=== PATIENT | female | born 1990 | race Two or more races ===

== ENCOUNTER → 2016-12-24 | Outpatient (CLI) | payer OTHER ==
--- NOTE | 2016-12-24 16:32 | REP ---
LEFT FOOT, FOUR VIEWS: HISTORY: Pain. There is no acute fracture or dislocation. The joint spaces are normal in appearance. IMPRESSION: There is no acute fracture or dislocation. Signed by Aquilino Kaur MD 12/24/2016 04:37 P
== END ==
LOC: M LRY 14:55
PROVIDERS: ATTEND Nurse Practitioner Family
DX: M79.672 Pain in left foot (principal)
CPT/HCPCS: 73630; G0463

== ENCOUNTER 2018-10-06 18:14 | Inpatient (IN) | payer OTHER ==
[~2018-10-06] VITALS: Ht 165.1 cm; Wt 106.9 kg
[~2018-10-06 18:14] MED LIST: PENI250T57 PO
[2018-10-06] MEDS ORDERED: ACET1TAB55 PO (18:20)
[2018-10-06] MEDS ORDERED: NS 1,000 ML IV ONE (20:15)
[2018-10-06] MEDS: HYDROMORPHONE HCL 0.5 MG/ 0.5 ML SYRINGE (J1170 PER 1) IV PRN ×2 (20:23→20:48)
[2018-10-06 20:27] LABS: BASO % 0.2 % (0.0-1.0); EOS % 0.1 % (0.0-3.0); HEMATOCRIT 44.5 % (36.0-47.0); HEMOGLOBIN 15.5 g/dl (12.0-15.5); LYMPH % 12.1 % (24.0-44.0); MEAN CORPUSCULAR HGB CONC 34.8 g/dl (32.0-36.5); MEAN CORPUSCULAR VOLUME 91.9 fl (80.0-96.0); MONO # 0.9 10^3/uL (0.0-0.8); MONO % 5.5 % (0.0-5.0); NEUTROPHILS # 13.7 10^3/uL (1.8-7.7); NEUTROPHILS % 81.7 % (36.0-66.0); PLATELET COUNT, AUTOMATED 272 10^3/uL (150-450); RED BLOOD COUNT 4.84 10^6/uL (4.00-5.40); WHITE BLOOD COUNT 16.8 10^3/uL (4.0-10.0)
[2018-10-06] MEDS ORDERED: ONDANSETRON 4MG/2ML VIAL (J2405) IV ONE (20:30)
[2018-10-06 20:43] LABS: ALBUMIN 3.9 GM/DL (3.2-5.2); ALT/SGPT 28 U/L (12-78); BILIRUBIN,DIRECT 0.3 MG/DL (0.0-0.2); BILIRUBIN,TOTAL 0.7 MG/DL (0.2-1.0); BLOOD UREA NITROGEN 10 MG/DL (7-18); CALCIUM LEVEL 9.3 MG/DL (8.5-10.1); CARBON DIOXIDE LEVEL 26 MEQ/L (21-32); CHLORIDE LEVEL 106 MEQ/L (98-107); CREATININE FOR GFR 1.02 MG/DL (0.55-1.30); GLOMERULAR FILTRATION RATE > 60.0 (>60); GLUCOSE, FASTING 99 MG/DL (70-100); HCG, SERUM QUANTITATIVE < 1.0 MIU/ML; LIPASE 88 U/L (73-393); POTASSIUM SERUM 3.9 MEQ/L (3.5-5.1); SODIUM LEVEL 138 MEQ/L (136-145); TOTAL PROTEIN 8.2 GM/DL (6.4-8.2)
[2018-10-06] MEDS ORDERED: ISOVUE-370 76% 100ML VIAL (Q9967) As Ordered ONE (20:48)
[2018-10-06] MEDS ORDERED: PROMETHAZINE INJ 25 MG/ML VIAL (J2550) IV ONE (21:15)
--- NOTE | 2018-10-06 21:37 | REPVR ---
EXAM: CT Abdomen and Pelvis With Contrast EXAM DATE/TIME: 10/06/2018 9:13 PM CLINICAL HISTORY: 28 years old, female; Abdominal pain; Additional info: Abd pain, luq TECHNIQUE: Imaging protocol: Axial computed tomography images of the abdomen and pelvis with intravenous contrast. Coronal and sagittal reformatted images were created and reviewed. Radiation optimization: All CT scans at this facility use at least one of these dose optimization techniques: automated exposure control; mA and/or kV adjustment per patient size (includes targeted exams where dose is matched to clinical indication); or iterative reconstruction. Contrast material: ISO 370; Contrast volume: 100 ml; Contrast route: IV; COMPARISON: US PELVIC NON-OB COMPLETE 12/06/2015 5:24 PM FINDINGS: Liver: Mild hepatic steatosis. Gallbladder and bile ducts: No radiodense gallstones. No biliary ductal dilatation. Pancreas: Unremarkable. Spleen: Unremarkable. Adrenals: Unremarkable. Kidneys and ureters: Nonobstructing left renal calculi. No hydronephrosis. Stomach and bowel: No bowel wall thickening. No obstruction. No pneumatosis. Appendix: Findings suggestive of prior appendectomy. Intraperitoneal space: No free fluid. No organized fluid collection. No free air. Vasculature: Unremarkable. No aneurysm. Lymph nodes: No pathologically enlarged lymph nodes. Bladder: Unremarkable. Reproductive: Intrauterine device in adequate position. Bones/joints: No acute osseous abnormality. Soft tissues: Small, fat-containing umbilical hernia. IMPRESSION: 1. No CT evidence of acute intra-abdominal or pelvic pathology. 2. Additional findings, as above. Electronically signed by: Yannick Felipe On 10/06/2018 21:37:20 PM
[2018-10-06] MEDS ORDERED: GI COCKTAIL 50ML BTL(HYOSCYAMINE/MAALOX/LIDOCAINE VISCOUS)(1:3:1) PO ONE (21:45)
[2018-10-06] MEDS ORDERED: NS 500 ML IV ONE (23:30)
[2018-10-06] MEDS ORDERED: KETOROLAC 30 MG/ML VIAL (J1885) As Ordered ONE (23:32)
[2018-10-06] MEDS ORDERED: KETOROLAC 30 MG/ML VIAL (J1885) IV ONE (23:45)
[2018-10-07] VITALS (12 sets, daily range): BP systolic 90–125; BP diastolic 46–67
[2018-10-07] MEDS ORDERED: PANTOPRAZOLE 40MG INJ (PROTONIX) (C9113) IV ONE (00:15)
[2018-10-07] MEDS ORDERED: HYDROMORPHONE HCL 0.5 MG/ 0.5 ML SYRINGE (J1170 PER 1) IV PRN (00:15)
[2018-10-07] MEDS ORDERED: ACET-897 PO (00:19)
--- NOTE | 2018-10-07 00:44 | HPEPDOC ---
General Date of Admission 10/07/18 Date of Service: Oct 07, 2018 Primary Care Physician: A Attending Physician: SIRIA CABRERA MD Chief Complaint The patient is a 28-year-old female admitted with a reason for visit of Nausea/Vomiting/Fever. Source: Patient Exam Limitations: No limitations Timing/Duration: Day(s) Severity: Moderate Associated Symptoms: Nausea, Vomiting History of Present Illness 28 years old female with past medical history ofsignificant disease except appendectomy and LEEP procedure presented with chief complaints of persistent nausea and vomiting since last 3 days and unable to keep anything down. Patient also complaining of abdominal pain which is sharp, epigastric in nature, nonradiating, persistent not relieving with any medication or position and exacerbated by increase it by increasing oral intake Home Medications Scheduled PRN Acetaminophen (Tylenol Extra Strength) 500 Mg Tablet, 1,000 MG PO Q6H PRN for PAIN, (Reported) Allergies Coded Allergies: No Known Allergies (Unverified , 10/06/18) Past Medical History Medical History None Surgical History Appendectomy Family History Significant Family History: No pertinent family hx Social History * Smoker: Denies Alcohol: Denies Drugs: denies A-FIB/[facility]ADSVASC A-FIB History Current/History of A-Fib/PAF?: No Review of Systems Constitutional: Denies: Chills, Fever, Malaise, Night Sweats, Weakness, Fatigue, Weight Loss, Lethargy, Other Eyes: Denies: Pain, Vision change, Conjunctivae inflammation, Eyelid inflammation, Redness, Other ENT: Denies: Head Aches, Ear Pain, Dysphagia, Sinus Congestion, Post Nasal Drip, Sore Throat, Epistaxis, Other Symptoms Pulmonary: Denies: Dyspnea, Cough, Pleuritic Chest Pain, Other Symptoms Cardiovascular: Denies: Chest Pain, Palpitations, Orthopnea, Paroxysmal Noc. Dyspnea, Edema, Lt Headedness, Other Symptoms Gastrointestinal: Reports: Nausea, Vomiting, Abdominal Pain Genitourinary: Denies: Dysuria, Frequency, Incontinence, Hematuria, Retention, Other Symptoms Hematologic: Denies: Bruising, Bleeding Excessively, Petecchia, Purpura, Enlarged Lymph Nodes, Other Hematologic Endocrine: Denies: Polydipsia, Polyphagia, Polyuria, Heat Intolerance, Cold Intolerance, Other Endocrine Sx Musculoskeletal: Denies: Neck Pain, Back Pain, Shoulder Pain, Arm Pain, Hand Pain, Leg Pain, Foot Pain, Joint Pain, Muscle Pain, Spasms, Other Symptoms Neurological: Denies: Weakness, Numbness, Incoordination, Change in speech, Confusion, Seizures, Other Symptoms Psych: Denies: Mood Normal, Anxiety, Depression, Memory Issues, Thoughts of Self Harm, Anger, Thoughts of Harming Other, Other Psych Physical Examination General Exam: Positive: Alert Eye Exam: Positive: PERRLA ENT Exam: Positive: Atraumatic Neck Exam: Positive: Supple Chest Exam: Positive: Clear to auscultation, Normal air movement Heart Exam: Positive: Rate Normal, Normal S1, Normal S2 Abdomen Exam: Positive: Normal bowel sounds, Soft, Tenderness (admit epigastric area) Extremity Exam: Positive: Normal pulses Skin Exam: Positive: Nl turgor and temperature Neuro Exam: Positive: Strength at 5/5 X4 ext, Normal Tone, Sensation Intact Psych Exam: Positive: Mental status NL, Mood NL Vital Signs Vital Signs Date Time Temp Pulse Resp B/P (MAP) Pulse Ox O2 Delivery O2 Flow Rate FiO2 10/06/18 23:38 95 10/06/18 23:35 100.1 10/06/18 23:27 18 104/74 (84) 98 Room Air Laboratory Data Labs 24H Laboratory Tests 2 10/06/18 20:08: Lactic Acid Level 1.6 10/06/18 20:09: Immature Granulocyte % (Auto) 0.4, White Blood Count 16.8H, Red Blood Count 4.84, Hemoglobin 15.5, Hematocrit 44.5, Mean Corpuscular Volume 91.9, Mean Corpuscular Hemoglobin 32.0, Mean Corpuscular Hemoglobin Concent 34.8, Red Cell Distribution Width 12.5, Platelet Count 272, Neutrophils (%) (Auto) 81.7H, Lymphocytes (%) (Auto) 12.1L, Monocytes (%) (Auto) 5.5H, Eosinophils (%) (Auto) 0.1, Basophils (%) (Auto) 0.2, Neutrophils # (Auto) 13.7H, Lymphocytes # (Auto) 2.0, Monocytes # (Auto) 0.9H, Eosinophils # (Auto) 0.0, Basophils # (Auto) 0.0, Nucleated Red Blood Cells % (auto) 0.0, Anion Gap 6L, Glomerular Filtration Rate > 60.0, Calcium Level 9.3, Aspartate Amino Transf (AST/SGOT) 18, Alanine Aminotransferase (ALT/SGPT) 28, Alkaline Phosphatase 102, Total Bilirubin 0.7, Direct Bilirubin 0.3H, Total Protein 8.2, Albumin 3.9, Albumin/Globulin Ratio 0.91L, Lipase 88, Human Chorionic Gonadotropin, Quant < 1.0 10/06/18 20:15: POC Glucose (Misc Panel) 107H, POC Sodium (Misc Panel) 138, POC Potassium (Misc Panel) 3.8, POC Chloride (Misc Panel) 103, POC Total CO2 (Misc Panel) 23.0, POC Blood Urea Nitrogen (Misc Panel 9, POC Ionized Calcium (Misc Panel) 4.4L, POC Creatinine (Misc Panel) 0.9, POC Hematocrit (Misc Panel) 45.0 10/06/18 20:17: POC Beta HCG, Quantitative < 5.0 10/06/18 22:22: Urine Color YELLOW, Urine Appearance CLEAR, Urine pH 6.0, Urine Specific [place] >1.060H, Urine Protein NEGATIVE, Urine Glucose (UA) NEGATIVE, Urine Ketones TRA CEH, Urine Blood NEGATIVE, Urine Nitrite NEGATIVE, Urine Bilirubin NEGATIVE, Urine Urobilinogen 0.2, Urine Leukocyte Esterase NEGATIVE, Urine WBC (Auto) 0, Urine RBC (Auto) 1, Urine Hyaline Casts (Auto) 0, Urine Bacteria (Auto) NEGATIVE, Urine Squamous Epithelial Cells 9, Urine Mucus (Auto) SMALL, Urine Sperm (Auto) CBC/BMP Laboratory Tests 10/06/18 20:09 Red Blood Count 4.84, Mean Corpuscular Volume 91.9, Mean Corpuscular Hemoglobin 32.0, Mean Corpuscular Hemoglobin Concent 34.8, Red Cell Distribution Width 12.5, Neutrophils (%) (Auto) 81.7 H, Lymphocytes (%) (Auto) 12.1 L, Monocytes (%) (Auto) 5.5 H, Eosinophils (%) (Auto) 0.1, Basophils (%) (Auto) 0.2, Neutrophils # (Auto) 13.7 H, Lymphocytes # (Auto) 2.0, Monocytes # (Auto) 0.9 H, Eosinophils # (Auto) 0.0, Basophils # (Auto) 0.0 Microbiology Microbiology 10/06/18 Respiratory Virus Panel (PCR) ([facility]) - Final, Complete Problems (1) Intractable vomiting Status: Acute Problem Text: 28 years old white female with presented with chief complaints of a persistent nausea, vomiting since last 3 days, unable to keep anything down. As per patient, she has been drinking on Friday but has not eaten or drank anything else afterwards Most likely cause is acute gastritis Admit patient to medical floor IVF normal saline at 100 mL per hour Protonix 40 mg IV every 12 hours Morphine sulfate 4 mg IV every 4 hours when necessary Zofran 4 mg IV every 4 hours when necessary DVT prophylaxis with Lovenox Nothing by mouth Activity as tolerated Plan / VTE VTE Prophylaxis Ordered?: Yes SIRIA CABRERA MD Oct 07, 2018 00:44
[2018-10-07] MEDS ORDERED: NS 1,000 ML IV SCH ×2 (00:45→08:31)
[2018-10-07] MEDS ORDERED: MORPHINE 4 MG/ML 1ML VIAL/SYRINGE (J2270) IV PRN (00:45)
[2018-10-07] MEDS: ONDANSETRON 4MG/2ML VIAL (J2405) IV SCH ×4 (01:44→17:54)
[2018-10-07] MEDS ORDERED: NS 500 ML IV ONE (05:15)
[2018-10-07] MEDS: ENOXAPARIN 40 MG/0.4 ML SYRINGE (J1650) SC SCH (06:09)
[2018-10-07] MEDS ORDERED: DEXTROSE 50% 50 ML SYRINGE IV PRN (08:45)
[2018-10-07] MEDS ORDERED: GLUCOSE 4 GM CHEW TABLET PO PRN (08:45)
[2018-10-07] MEDS ORDERED: GLUCAGON FOR INJ 1 MG VIAL (J1610) SC PRN (08:45)
[2018-10-07] MEDS ORDERED: NALBUPHINE HCL 10 MG/ML AMP (J2300) IV PRN (09:00)
[2018-10-07] MEDS ORDERED: ONDANSETRON 4MG/2ML VIAL (J2405) IV PRN (09:00)
[2018-10-07] MEDS ORDERED: diphenhydrAMINE INJ 50MG/ML VIAL (J1200) IV PRN (09:00)
[2018-10-07] MEDS ORDERED: EPIDURAL/PCA KEYS XX PRN (09:00)
[2018-10-07] MEDS ORDERED: NALOXONE INJ 0.4 MG/1 ML VIAL (J2310) IV PRN (09:00)
[2018-10-07] MEDS ORDERED: PANTOPRAZOLE 40MG INJ (PROTONIX) (C9113) IV SCH (09:00)
[2018-10-07] MEDS ORDERED: MORPHINE 1MG/ML IN 0.9% NACL 100ML IV BAG IV PRN (09:00)
[2018-10-07] MEDS: KETOROLAC 30 MG/ML VIAL (J1885) IV SCH ×3 (09:13→21:29)
[2018-10-07] MEDS: D5W/0.45% SODIUM CHLORIDE 1,000 ML IV SCH ×2 (09:26→17:54)
[2018-10-07] MEDS: METOCLOPRAMIDE INJ 10MG/2ML VIAL (J2765) IV SCH ×3 (09:26→21:28)
[2018-10-07] MEDS ORDERED: E-Z-GAS II EFFERVESCENT PACKET (SODIUM BICARB./CITRIC ACID/SIMETHICONE) As Ordered ONE (09:30)
[2018-10-07] MEDS ORDERED: E-Z-PAQUE 96% w/w SUSP 176GM BTL As Ordered ONE (09:30)
[2018-10-07] MEDS ORDERED: E-Z-HD 98% w/w 340GM SUSP BTL As Ordered ONE (09:31)
--- NOTE | 2018-10-07 12:12 | IPNPDOC ---
Date Seen The patient was seen on 10/07/18. Progress Note SUBJECTIVE: Pt c/o 4days abd pain in LLQ and between shoulder blades, generalized aches, b/l knee pain without swelling or stiffness, subjective fever and chills at home, despite tylenol. In the ER, CT abd/pelvis: no acute pathology. CMP wnl with normal lipase. Pt still c/o nausea but no vomiting this morning. denies marijuana, drug use, or sick contacts. no family or personal history of inflammatory bowel disease. Her mom has history of ulcers. OBJECTIVE Physical Examination vitals: pls see below General Exam: Positive: Alert Eye Exam: Positive: PERRLA ENT Exam: Positive: Atraumatic Neck Exam: Positive: Supple Chest Exam: Positive: Clear to auscultation, Normal air movement Heart Exam: Positive: Rate Normal, Normal S1, Normal S2 Abdomen Exam: Positive: Normal bowel sounds, Soft, Tenderness LLQ no rebound no guarding Extremity Exam: Positive: Normal pulses. BILATERAL knees normal ROM, without erythema, tenderness, or effusion. Skin Exam: Positive: Nl turgor and temperature Neuro Exam: Positive: Strength at 5/5 X4 ext, Normal Tone, Sensation Intact Psych Exam: Positive: Mental status NL, Mood NL LABORATORY DATA, IMAGING STUDIES, MICROBIOLOGY: PLS SEE BELOW ASSESSMENT AND PLAN: 28 years old female with past medical history ofsignificant disease except appendectomy and LEEP procedure presented with chief complaints of persistent nausea and vomiting since last 3 days and unable to keep anything down. Patient also complaining of abdominal pain which is sharp, epigastric in nature, nonradiating, persistent not relieving with any medication or position and exa cerbated by increase it by increasing oral intake Intractable Vomiting and LLQ abdominal pain -ugiseries with sbft report is pending -for symptomatic care: zofran, reglan, iv fluids, morphine certified ophthalmic assistant pump -ct abd pelvis: nonobstructing stones, s/p appendectomy, umbilical hernia -check ibd serology, and h. pylori -liquid diet Fever or unknown origin -tmax 101 on admission -ua negative -ct abd neg -empiric cipro flagyl -blood cx x2sets -cxr -check procalcitonin -negative respiratory panel h/o LEEP procedure -stable IUD -stable diet: liquid dvt prophylaxis: lovenox VS, I&O, 24H, Fishbone Vital Signs/I&O Vital Signs Date Time Temp Pulse Resp B/P (MAP) Pulse Ox O2 Delivery O2 Flow Rate FiO2 10/07/18 11:20 97.4 77 14 91/51 (64) 95 10/06/18 23:27 Room Air I&O- Last 24 Hours up to 6 AM 10/07/18 06:00 Intake Total 1400 ml Output Total 0 ml Balance 1400 ml Laboratory Data 24H LABS Laboratory Tests 2 10/06/18 20:08: Lactic Acid Level 1.6 10/06/18 20:09: Immature Granulocyte % (Auto) 0.4, White Blood Count 16.8H, Red Blood Count 4.84, Hemoglobin 15.5, Hematocrit 44.5, Mean Corpuscular Volume 91.9, Mean Corpuscular Hemoglobin 32.0, Mean Corpuscular Hemoglobin Concent 34.8, Red Cell Distribution Width 12.5, Platelet Count 272, Neutrophils (%) (Auto) 81.7H, Lymphocytes (%) (Auto) 12.1L, Monocytes (%) (Auto) 5.5H, Eosinophils (%) (Auto) 0.1, Basophils (%) (Auto) 0.2, Neutrophils # (Auto) 13.7H, Lymphocytes # (Auto) 2.0, Monocytes # (Auto) 0.9H, Eosinophils # (Auto) 0.0, Basophils # (Auto) 0.0, Nucleated Red Blood Cells % (auto) 0.0, Anion Gap 6L, Glomerular Filtration Rate > 60.0, Calcium Level 9.3, Aspartate Amino Transf (AST/SGOT) 18, Alanine Aminotransferase (ALT/SGPT) 28, Alkaline Phosphatase 102, Total Bilirubin 0.7, Direct Bilirubin 0.3H, Total Protein 8.2, Albumin 3.9, Albumin/Globulin Ratio 0.91L, Lipase 88, Human Chorionic Gonadotropin, Quant < 1.0 10/06/18 20:15: POC Glucose (Misc Panel) 107H, POC Sodium (Misc Panel) 138, POC Potassium (Misc Panel) 3.8, POC Chloride (Misc Panel) 103, POC Total CO2 (Misc Panel) 23.0, POC Blood Urea Nitrogen (Misc Panel 9, POC Ionized Calcium (Misc Panel) 4.4L, POC Creatinine (Misc Panel) 0.9, POC Hematocrit (Misc Panel) 45.0 10/06/18 20:17: POC Beta HCG, Quantitative < 5.0 10/06/18 22:22: Urine Color YELLOW, Urine Appearance CLEAR, Urine pH 6.0, Urine Specific [place] >1.060H, Urine Protein NEGATIVE, Urine Glucose (UA) NEGATIVE, Urine Ketones TRACEH, Urine Blood NEGATIVE, Urine Nitrite NEGATIVE, Urine Bilirubin NEGATIVE, Urine Urobilinogen 0.2, Urine Leukocyte Esterase NEGATIVE, Urine WBC (Auto) 0, Urine RBC (Auto) 1, Urine Hyaline Casts (Auto) 0, Urine Bacteria (Auto) NEG ATIVE, Urine Squamous Epithelial Cells 9, Urine Mucus (Auto) SMALL, Urine Sperm (Auto) CBC/BMP Laboratory Tests 10/06/18 20:09 Red Blood Count 4.84, Mean Corpuscular Volume 91.9, Mean Corpuscular Hemoglobin 32.0, Mean Corpuscular Hemoglobin Concent 34.8, Red Cell Distribution Width 12.5, Neutrophils (%) (Auto) 81.7 H, Lymphocytes (%) (Auto) 12.1 L, Monocytes (%) (Auto) 5.5 H, Eosinophils (%) (Auto) 0.1, Basophils (%) (Auto) 0.2, Neutrophils # (Auto) 13.7 H, Lymphocytes # (Auto) 2.0, Monocytes # (Auto) 0.9 H, Eosinophils # (Auto) 0.0, Basophils # (Auto) 0.0 Microbiology Microbiology 10/06/18 Respiratory Virus Panel (PCR) ([facility]) - Final, Complete PEG DIEHL MD Oct 07, 2018 12:04
[2018-10-07] MEDS ORDERED: GI COCKTAIL 50ML BTL(HYOSCYAMINE/MAALOX/LIDOCAINE VISCOUS)(1:3:1) PO PRN (12:15)
[2018-10-07] MEDS: SUCRALFATE SUSP 1GM/10ML UD PO SCH ×3 (12:50→21:28)
[2018-10-07] MEDS: CIPROFLOXACIN 400 MG in APPROPRIATE DILUENT 1 EA IV SCH (12:50)
--- NOTE | 2018-10-07 12:50 | REP ---
Portable chest, 12:24 p.m., single AP view with the patient upright: There are no comparisons. The lung pa are clear. The cardiac size is normal. The cheikh, mediastinum, and skeletal structures are unremarkable. Impression: Negative portable chest. Electronically Signed by Christiano Garnett MD 10/07/2018 12:40 P
[2018-10-07 12:59] LABS: ALBUMIN 2.9 GM/DL (3.2-5.2); ALT/SGPT 21 U/L (12-78); AMYLASE 19 U/L (25-115); BILIRUBIN,TOTAL 0.4 MG/DL (0.2-1.0); BLOOD UREA NITROGEN 8 MG/DL (7-18); CALCIUM LEVEL 7.7 MG/DL (8.5-10.1); CARBON DIOXIDE LEVEL 28 MEQ/L (21-32); CHLORIDE LEVEL 110 MEQ/L (98-107); CREATININE FOR GFR 0.91 MG/DL (0.55-1.30); GLOMERULAR FILTRATION RATE > 60.0 (>60); GLUCOSE, FASTING 98 MG/DL (70-100); LIPASE 64 U/L (73-393); POTASSIUM SERUM 3.5 MEQ/L (3.5-5.1); SODIUM LEVEL 141 MEQ/L (136-145)
[2018-10-07 13:14] LABS: BASO % 0.2 % (0.0-1.0); EOS # 0.1 10^3/uL (0.0-0.50); EOS % 1.5 % (0.0-3.0); HEMATOCRIT 36.4 % (36.0-47.0); LYMPH # 1.3 10^3/uL (1.5-6.5); LYMPH % 15.4 % (24.0-44.0); MEAN CORPUSCULAR HEMOGLOBIN 31.5 pg (27.0-33.0); MEAN CORPUSCULAR HGB CONC 33.2 g/dl (32.0-36.5); MEAN CORPUSCULAR VOLUME 94.8 fl (80.0-96.0); MONO # 0.7 10^3/uL (0.0-0.8); MONO % 8.5 % (0.0-5.0); NEUTROPHILS # 6.2 10^3/uL (1.8-7.7); NEUTROPHILS % 74.2 % (36.0-66.0); PLATELET COUNT, AUTOMATED 206 10^3/uL (150-450); RED BLOOD COUNT 3.84 10^6/uL (4.00-5.40); WHITE BLOOD COUNT 8.4 10^3/uL (4.0-10.0)
[2018-10-07 13:16] LABS: ERYTHROCYTE SEDIMENTATION RATE 46 mm/hr (0-20)
[2018-10-07 13:23] LABS: HEMOGLOBIN 12.1 g/dl (12.0-15.5)
--- NOTE | 2018-10-07 13:25 | REP ---
UPPER GI AIR CONTRAST AND SMALL BOWEL FOLLOW THROUGH The procedure was performed under the direct supervision of Dr. Belle. The images were reviewed with Dr. Belle The magistrate film shows no organomegaly or pathological masses. The intestinal gas pattern is non-specific. There is an IUD in place. There is a surgical clip seen in the right abdomen. Liquid barium and gas producing crystals were given in the erect position as well as liquid barium in the prone oblique position in order to perform a double contrast upper GI examination. Additionally liquid barium was given at the end of the examination in order to perform a small bowel follow through. The oral and pharyngeal stages of deglutition are unremarkable. Esophageal transport is prompt and efficient and there is no esophagitis, stricture, mucosal ring or hiatal hernia. There is gastroesophageal reflux demonstrated to the level of the thoracic inlet. The stomach murguia are normally outlined . The rugal folds are smooth and regular. There is no gastritis neoplasm or ulcer disease. In the duodenum there are thickened folds which may represent duodenitis. There is no polo ulcer identified. The visualized portion of the proximal small bowel appears normal in course and caliber. The barium column was followed through the small bowel to the level of the terminal ileum. Small bowel transit time is approximately 35 minutes. During fluoroscopy gentle palpation shows all loops are freely movable and pliable. There are no fixed or angulated loops. The small bowel mucosal pattern is normal in course and caliber. There is no transition to suggest a partial small-bowel obstruction. Spot filming of the terminal ileum shows it to be unremarkable. Impression: 1. There is gastroesophageal reflux demonstrated to the level of the thoracic inlet. 2. There are thickened folds in the duodenum which may represent duodenitis. There is no polo ulcer identified. 1.9 minutes of fluoro time was utilized for this procedure. Reviewed by CARLEEN Blackwell 10/07/2018 12:10 P Electronically Signed by Christiano Belle MD 10/07/2018 01:16 P
[2018-10-07] MEDS: metroNIDAZOLE 500 MG in APPROPRIATE DILUENT 1 EA IV SCH ×2 (14:31→22:12)
--- NOTE | 2018-10-07 20:31 | ECGEPIP ---
[facility] - ED Test Date: 2018-10-06 Pat Name: DARRICK BURKETT Department: Room: [place] [address] Gender: Female Assistant [employer]: alejandro : 1990 Requested By: KAR Milligan Order Number: [id number] Reading MD: Portillo Muniz Measurements Intervals [place] Rate: 113 P: 57 FL: 165 QRS: 207 QRSD: 98 T: 46 QT: 321 QTc: 441 Interpretive Statements SINUS TACHYCARDIA LEFT AXIS DEVIATION NSTTW ABNORMALITIES NO PRIORS FOR COMPARISON Electronically Signed on 10-07-2018 20:30:54 EDT by Portillo Muniz
[2018-10-07] MEDS: PANTOPRAZOLE 40MG TAB (PROTONIX) PO SCH (21:28)
[2018-10-08] VITALS: BP 108/75
[2018-10-08] MEDS: ONDANSETRON 4MG/2ML VIAL (J2405) IV SCH ×4 (00:53→17:48)
[2018-10-08] MEDS: CIPROFLOXACIN 400 MG in APPROPRIATE DILUENT 1 EA IV SCH ×2 (00:53→12:14)
[2018-10-08] MEDS: D5W/0.45% SODIUM CHLORIDE 1,000 ML IV SCH ×3 (02:51→20:31)
[2018-10-08] MEDS: KETOROLAC 30 MG/ML VIAL (J1885) IV SCH ×4 (03:40→21:42)
[2018-10-08] MEDS: METOCLOPRAMIDE INJ 10MG/2ML VIAL (J2765) IV SCH ×4 (03:40→21:00)
[2018-10-08 04:00] VITALS: BP 112/61
[2018-10-08] MEDS: metroNIDAZOLE 500 MG in APPROPRIATE DILUENT 1 EA IV SCH ×3 (06:12→21:43)
[2018-10-08] MEDS: ENOXAPARIN 40 MG/0.4 ML SYRINGE (J1650) SC SCH (06:12)
[2018-10-08 06:23] LABS: HEMATOCRIT 35.7 % (36.0-47.0); HEMOGLOBIN 11.9 g/dl (12.0-15.5); MEAN CORPUSCULAR HEMOGLOBIN 31.3 pg (27.0-33.0); MEAN CORPUSCULAR HGB CONC 33.3 g/dl (32.0-36.5); MEAN CORPUSCULAR VOLUME 93.9 fl (80.0-96.0); PLATELET COUNT, AUTOMATED 199 10^3/uL (150-450); WHITE BLOOD COUNT 7.8 10^3/uL (4.0-10.0)
[2018-10-08 06:52] LABS: ALBUMIN 2.8 GM/DL (3.2-5.2); ALT/SGPT 19 U/L (12-78); BILIRUBIN,TOTAL 0.3 MG/DL (0.2-1.0); BLOOD UREA NITROGEN 6 MG/DL (7-18); CALCIUM LEVEL 8.2 MG/DL (8.5-10.1); CARBON DIOXIDE LEVEL 29 MEQ/L (21-32); CHLORIDE LEVEL 107 MEQ/L (98-107); CREATININE FOR GFR 0.84 MG/DL (0.55-1.30); GLOMERULAR FILTRATION RATE > 60.0 (>60); GLUCOSE, FASTING 133 MG/DL (70-100); MAGNESIUM LEVEL 2.3 MG/DL (1.8-2.4); POTASSIUM SERUM 3.8 MEQ/L (3.5-5.1); SODIUM LEVEL 138 MEQ/L (136-145); TOTAL PROTEIN 6.4 GM/DL (6.4-8.2)
[2018-10-08] MEDS: SUCRALFATE SUSP 1GM/10ML UD PO SCH ×4 (07:49→21:43)
[2018-10-08 08:00] VITALS: BP 121/65
[2018-10-08] MEDS ORDERED: ACETAMINOPHEN TAB 650MG DOSE (2X325MG) PO ONE (08:30)
[2018-10-08] MEDS ORDERED: ACETAMINOPHEN TAB 650MG DOSE (2X325MG) PO PRN (08:30)
[2018-10-08] MEDS: PANTOPRAZOLE 40MG TAB (PROTONIX) PO SCH ×2 (09:07→21:43)
[2018-10-08] MEDS ORDERED: MORPHINE 4 MG/ML 1ML VIAL/SYRINGE (J2270) IV PRN (09:45)
--- NOTE | 2018-10-08 09:46 | IPNPDOC ---
Date Seen The patient was seen on 10/08/18. Progress Note SUBJECTIVE: UGI series 10/07/18: gerd, gastritis. no ulcer. she is tolerating her diet without nausea or vomiting, and requesting advancement to regular diet. Pt c/o 5 days abd pain in LLQ and between shoulder blades, generalized aches, b/l knee pain without swelling or stiffness, subjective fever and chills at home, despite tylenol. In the ER, CT abd/pelvis: no acute pathology. CMP wnl with normal lipase. denies marijuana, drug use, or sick contacts. no family or personal history of inflammatory bowel disease. Her mom has history of ulcers. OBJECTIVE Physical Examination vitals: pls see below General Exam: Positive: Alert Eye Exam: Positive: PERRLA ENT Exam: Positive: Atraumatic Neck Exam: Positive: Supple Chest Exam: Positive: Clear to auscultation, Normal air movement Heart Exam: Positive: Rate Normal, Normal S1, Normal S2 Abdomen Exam: Positive: Normal bowel sounds, Soft, Tenderness LLQ no rebound no guarding Extremity Exam: Positive: Normal pulses. BILATERAL knees normal ROM, without erythema, tenderness, or effusion. Skin Exam: Positive: Nl turgor and temperature Neuro Exam: Positive: Strength at 5/5 X4 ext, Normal Tone, Sensation Intact Psych Exam: Positive: Mental status NL, Mood NL LABORATORY DATA, IMAGING STUDIES, MICROBIOLOGY: PLS SEE BELOW ASSESSMENT AND PLAN: 28 years old female with past medical history ofsignificant disease except appendectomy and LEEP procedure presented with chief complaints of persistent nausea and vomiting since last 3 days and unable to keep anything down. Patient also complaining of abdominal pain which is sharp, epigastric in nature, nonradiating, persistent not relieving with any medication or position and exace rbated by increase it by increasing oral intake Intractable Vomiting and LLQ abdominal pain -due to GERD/gastritis without ulcer -ugiseries with sbft : GERD & gastritis -for symptomatic care: zofran, reglan, iv fluids, s/p morphine financial operations analyst pump -ct abd pelvis: nonobstructing stones, s/p appendectomy, umbilical hernia -checked ibd serology, and h. pylori -liquid diet advanced to low residue diet 10/08/18 GERD & gastritis -on PPI bid, carafate, gi cocktail prn -for symptomatic care: zofran, reglan, iv fluids, s/p morphine financial operations analyst pump -ct abd pelvis: nonobstructing stones, s/p appendectomy, umbilical hernia -checked ibd serology, and h. pylori antigen -liquid diet advanced to low residue diet 10/08/18 Fever or unknown origin -tmax 101 on admission -ua negative -ct abd neg -empiric cipro flagyl -blood cx x2sets -cxr-no pneumonia -checked procalcitonin -negative respiratory panel h/o LEEP procedure -stable IUD -stable obesity bmi 39.2 complicating care Fatty liver -checked liver profile. diet: liquid diet advanced to low residue 10/08/18 disposition: dc i n am if stable. VS, I&O, 24H, Fishbone Vital Signs/I&O Vital Signs Date Time Temp Pulse Resp B/P (MAP) Pulse Ox O2 Delivery O2 Flow Rate FiO2 10/08/18 09:07 16 10/08/18 08:00 97.4 93 121/65 (83) 98 1.0 10/06/18 23:27 Room Air I&O- Last 24 Hours up to 6 AM 10/08/18 05:59 Intake Total 2765 ml Output Total 926 ml Balance 1839 ml Laboratory Data 24H LABS Laboratory Tests 2 10/07/18 12:06: 10/07/18 12:09: Immature Granulocyte % (Auto) 0.2, White Blood Count 8.4, Red Blood Count 3.84L, Hemoglobin 12.1#, Hematocrit 36.4, Mean Corpuscular Volume 94.8, Mean Corpuscular Hemoglobin 31.5, Mean Corpuscular Hemoglobin Concent 33.2, Red Cell Distribution Width 12.9, Platelet Count 206, Neutrophils (%) (Auto) 74.2H, Lymphocytes (%) (Auto) 15.4L, Monocytes (%) (Auto) 8.5H, Eosinophils (%) (Auto) 1.5, Basophils (%) (Auto) 0.2, Neutrophils # (Auto) 6.2, Lymphocytes # (Auto) 1.3L, Monocytes # (Auto) 0.7, Eosinophils # (Auto) 0.1, Basophils # (Auto) 0.0, Nucleated Red Blood Cells % (auto) 0.0, Erythrocyte Sedimentation Rate 46H, Anion Gap 3L, Glomerular Filtration Rate > 60.0, Blood Urea Nitrogen 8, Creatinine 0.91, Sodium Level 141, Potassium Level 3.5, Chloride Level 110H, Carbon Dioxide Level 28, Calcium Level 7.7#L, Aspartate Amino Transf (AST/SGOT) 12, Alanine Aminotransferase (ALT/SGPT) 21, Alkaline Phosphatase 73, Total Bilirubin 0.4, Total Protein 6.0#L, Albumin 2.9#L, C-Reactive Protein, Quantitative 11.30H, Albumin/Globulin Ratio 0.94L, Amylase Level 19L, Lipase 64L 10/08/18 06:09: Nucleated Red Blood Cells % (auto) 0.0, Anion Gap 2L, Glomerular Filtration Rate > 60.0, Blood Urea Nitrogen 6L, Creatinine 0.84, Sodium Level 138, Potassium Level 3.8, Chloride Level 107, Carbon Dioxide Level 29, Calcium Level 8.2L, As partate Amino Transf (AST/SGOT) 12, Alanine Aminotransferase (ALT/SGPT) 19, Alkaline Phosphatase 72, Total Bilirubin 0.3, Total Protein 6.4, Albumin 2.8L, Albumin/Globulin Ratio 0.78L, Magnesium Level 2.3 CBC/BMP Laboratory Tests 10/07/18 12:09 Red Blood Count 3.84 L, Mean Corpuscular Volume 94.8, Mean Corpuscular Hemoglobin 31.5, Mean Corpuscular Hemoglobin Concent 33.2, Red Cell Distribution Width 12.9, Neutrophils (%) (Auto) 74.2 H, Lymphocytes (%) (Auto) 15.4 L, Monocytes (%) (Auto) 8.5 H, Eosinophils (%) (Auto) 1.5, Basophils (%) (Auto) 0.2, Neutrophils # (Auto) 6.2, Lymphocytes # (Auto) 1.3 L, Monocytes # (Auto) 0.7, Eosinophils # (Auto) 0.1, Basophils # (Auto) 0.0, Calcium Level 7.7 #L, Aspartate Amino Transf (AST/SGOT) 12, Alanine Aminotransferase (ALT/SGPT) 21, Alkaline Phosphatase 73, Total Bilirubin 0.4, Total Protein 6.0 #L, Albumin 2.9 #L 10/08/18 06:09 Red Blood Count 3.80 L, Mean Corpuscular Volume 93.9, Mean Corpuscular Hemog lobin 31.3, Mean Corpuscular Hemoglobin Concent 33.3, Red Cell Distribution Width 12.8, Calcium Level 8.2 L, Aspartate Amino Transf (AST/SGOT) 12, Alanine Aminotransferase (ALT/SGPT) 19, Alkaline Phosphatase 72, Total Bilirubin 0.3, Total Protein 6.4, Albumin 2.8 L Microbiology Microbiology 10/07/18 Blood Culture, Received Pending 10/07/18 Blood Culture, Received Pending 10/06/18 Respiratory Virus Panel (PCR) ([facility]) - Final, Complete PEG DIEHL MD Oct 08, 2018 09:46
[2018-10-08 12:00] VITALS: BP 129/77
[2018-10-08 16:00] VITALS: BP 124/61
[2018-10-08 20:00] VITALS: BP 112/70
[2018-10-09] VITALS: BP 107/67
[2018-10-09] MEDS: CIPROFLOXACIN 400 MG in APPROPRIATE DILUENT 1 EA IV SCH (00:45)
[2018-10-09] MEDS: METOCLOPRAMIDE INJ 10MG/2ML VIAL (J2765) IV SCH ×2 (03:00→07:49)
[2018-10-09] MEDS: KETOROLAC 30 MG/ML VIAL (J1885) IV SCH ×2 (03:00→07:49)
[2018-10-09] MEDS: D5W/0.45% SODIUM CHLORIDE 1,000 ML IV SCH ×2 (03:57→07:40)
[2018-10-09 04:00] VITALS: BP 102/65
[2018-10-09] MEDS: ONDANSETRON 4MG/2ML VIAL (J2405) IV SCH ×2 (06:00)
[2018-10-09] MEDS: ENOXAPARIN 40 MG/0.4 ML SYRINGE (J1650) SC SCH (06:14)
[2018-10-09] MEDS: metroNIDAZOLE 500 MG in APPROPRIATE DILUENT 1 EA IV SCH (06:14)
[2018-10-09] MEDS: PANTOPRAZOLE 40MG TAB (PROTONIX) PO SCH (07:43)
[2018-10-09] MEDS: SUCRALFATE SUSP 1GM/10ML UD PO SCH (07:43)
[2018-10-09 08:00] VITALS: BP 132/83
[2018-10-09] MEDS ORDERED: SUCR10SS PO (09:59)
[2018-10-09] MEDS ORDERED: CIPR-249 PO (09:59)
[2018-10-09] MEDS ORDERED: PROT1TAB2 PO (09:59)
[2018-10-09] MEDS ORDERED: BACITAB PO (10:00)
[2018-10-09] MEDS ORDERED: FLAG500T PO (10:00)
--- NOTE | 2018-10-09 13:00 | DS.PDOC ---
Discharge Summary General Date of Admission Oct 07, 2018 at 12:08 Date of Discharge October 09, 2018 Discharge Summary DISCHARGE DIAGNOSES GERD DUODENITIS MORBID OBESITY BMI 39.2 NONOBSTRUCTING LEFT RENAL CALCULI FEVER OF UNKNOWN ORIGIN DISCHARGE MEDS: PLS SEE BELOW DISCHARGE INSTRUCTIONS: PCP FU IN 5 DAYS avoid NSAIDs, ASA IF HEMATEMESIS, BRBPR, DYSPHAGIA, WEIGHT LOSS OCCUR, PCP TO REFER TO GI FOR EGD WITH BIOPSY HISTORY OF PRESENTING ILLNESS: 28 years old female with past medical history ofsignificant disease except appendectomy and LEEP procedure presented with chief complaints of persistent nausea and vomiting since last 3 days and unable to keep anything down. Patient also complaining of abdominal pain which is sharp, epigastric in nature, nonradiating, persistent not relieving with any medication or position and exacerbated by increase it by increasing oral intake. HOSPITAL COURSE Intractable Vomiting and LLQ abdominal pain -due to GERD/Duodenitis without ulcer -ugiseries with sbft : GERD & gastritis -for symptomatic care: zofran, reglan, iv fluids, s/p morphine community health program coordinator pump -ct abd pelvis: nonobstructing stones, s/p appendectomy, umbilical hernia -checked ibd serology, and h. pylori -liquid diet advanced to low residue diet 10/08/18 -instructed to avoid NSAIDs, ASA GERD & Duodenitis -on PPI bid, carafate, gi cocktail prn -for symptomatic care: zofran, reglan, iv fluids, s/p morphine community health program coordinator pump -ct abd pelvis: nonobstructing stones, s/p appendectomy, umbilical hernia -checked ibd serology, and h. pylori antigen -liquid diet advanced to low residue diet 10/08/18 Fever or unknown origin -tmax 101 on admission -ua negative -ct abd neg -empiric cipro flagyl -blood cx x2sets -cxr-no pneumonia -checked procalcitonin -negative respiratory panel h/o LEEP procedure -stable IUD -stable obesity bmi 39.2 complicating care Fatty liver -checked liver profile. diet: liquid diet advanced to low residue 10/08/18 DISCHARGE PHYSICAL EXAMINATION: vitals: pls see below General Exam: Positive: Alert Eye Exam: Positive: PERRLA ENT Exam: Positive: Atraumatic Neck Exam: Positive: Supple Chest Exam: Positive: Clear to auscultation, Normal air movement Heart Exam: Positive: Rate Normal, Normal S1, Normal S2 Abdomen Exam: Positive: Normal bowel sounds, Soft, nontender, no rebound no guarding no HSM Extremity Exam: Positive: Normal pulses. BILATERAL knees normal ROM, without erythema, tenderness, or effusion. Skin Exam: Positive: Nl turgor and temperature Neuro Exam: Positive: Strength at 5/5 X4 ext, Normal Tone, Sensation Intact Psych Exam: Positive: Mental status NL, Mood NL LABORATORY DATA, IMAGING STUDIES, MICROBIOLOGY: PLS SEE BELOW UPPER GI AIR CONTRAST AND SMALL BOWEL FOLLOW THROUGH The procedure was performed under the direct supervision of Dr. Belle. The images were reviewed with Dr. Belle The lapping machine set up operator film shows no organomegaly or pathological masses. The intestinal gas pattern is non-specific. There is an IUD in place. There is a surgical clip seeN in the right abdomen. Liquid barium and gas producing crystals were given in the erect position as well as liquid barium in the prone oblique position in order to perform a double contrast upper GI examination. Additionally liquid barium was given at the end of the examination in order to perform a small bowel follow through. The oral and pharyngeal stages of deglutition are unremarkable. Esophageal transport is prompt and efficient and there is no esophagitis, stricture, muco moon ring or hiatal hernia. There is gastroesophageal reflux demonstrated to the level of the thoracic inlet. The stomach murguia are normally outlined . The rugal folds are smooth and regular. There is no gastritis neoplasm or ulcer disease. In the duodenum there are thickened folds which may represent duodenitis. There is no polo ulcer identified. The visualized portion of the proximal small bowel appears normal in course and caliber. The barium column was followed through the small bowel to the level of the terminal ileum. Small bowel transit time is approximately 35 minutes. During fluoroscopy gentle palpation shows all loops are freely movable and pliable. There are no fixed or angulated loops. The small bowel mucosal pattern is normal in course and caliber. There is no transition to suggest a partial small-bowel obstruction. Spot filming of the terminal ileum shows it to be unremarkable. Impression: 1. There is gastroesophageal reflux demonstrated to the level of the thoracic inlet. 2. There are thickened folds in the duodenum which may represent duodenitis. There is no polo ulcer identified. 1.9 minutes of fluoro time was utilized for this procedure. Reviewed by CARLEEN Blackwell 10/07/2018 12:10 P Electronically Signed by Christiano Belle MD 10/07/2018 01:16 P EXAM: CT Abdomen and Pelvis With Contrast EXAM DATE/TIME: 10/06/2018 9:13 PM CLINICAL HISTORY: 28 years old, female; Abdominal pain; Additional info: Abd pain, luq TECHNIQUE: Imaging protocol: Axial computed tomography images of the abdomen and pelvis with intravenous contrast. Coronal and sagittal reformatted images were created and reviewed. Radiation optimization: All CT scans at this facility use at least one of these dose optimization techniques: automated exposure control; mA and/or kV adjustment per patient size (includes targeted exams where dose is matched to clinical indication); or iterative reconstruction. Contrast material: ISO 370; Contrast volume: 100 ml; Contrast route: IV; COMPARISON: US PELVIC NON-OB COMPLETE 12/06/2015 5:24 PM FINDINGS: Liver: Mild hepatic steatosis. Gallbladder and bile ducts: No radiodense gallstones. No biliary ductal dilatation. Pancreas: Unremarkable. Spleen: Unremarkable. Adrenals: Unremarkable. Kidneys and ureters: Nonobstructing left renal calculi. No hydronephrosis. Stomach and bowel: No bowel wall thickening. No obstruction. No pneumatosis. Appendix: Findings suggestive of prior appendectomy. Intraperitoneal space: No free fluid. No organized fluid collection. No free air. Vasculature: Unremarkable. No aneurysm. Lymph nodes: No pathologically enlarged lymph nodes. Bladder: Unremarkable. Reproductive: Intrauterine device in adequate position. Bones/joints: No acute osseous abnormality. Soft tissues: Small, fat-containing umbilical hernia. IMPRESSION: 1. No CT evidence of acute intra-abdominal or pelvic pathology. 2. Additional findings, as above. Electronically signed by: Yannick Macias On 10/06/2018 21:37:20 PM DD: YANNICK MACIAS MD 10/06/182112 DT: RON 10/06/182136 DS: ZACKERY 10/06/182136 TIME SPENT ON DISCHARGE: 32 MINUTES Vital Signs/I&Os Vital Signs Date Time Temp Pulse Resp B/P (MAP) Pulse Ox O2 Delivery O2 Flow Rate FiO2 10/09/18 08:00 98.3 74 20 132/83 (99) 96 10/08/18 16:00 1.0 10/06/18 23:27 Room Air I&O- Last 24 Hours up to 6 AM 10/09/18 06:00 Intake Total 4920 ml Output Total 3625 ml Balance 1295 ml Microbiology Microbiology 10/07/18 Blood Culture - Preliminary, Resulted No growth after 24 hours . All specim... 10/07/18 Blood Culture - Preliminary, Resulted No Growth after 48 hours. All Specime... 10/06/18 Respiratory Virus Panel (PCR) ([facility]) - Final, Complete Discharge Medications Scheduled Ciprofloxacin HCl (Cipro) 500 Mg Tablet, 500 MG PO BID L.acidoph/L.bulg/B.bif/S.therm (Bacid Caplet) 1 Each Tablet, 1 TAB PO WM Metronidazole (Flagyl) 500 Mg Tablet, 500 MG PO BID Pantoprazole Sodium (Protonix) 40 Mg Tablet.dr, 40 MG PO BID Sucralfate (Sucralfate) 1 Gm/10 Ml Oral.susp, 1 GM PO ACHS Scheduled PRN Acetaminophen (Tylenol Extra Strength) 500 Mg Tablet, 1,000 MG PO Q6H PRN for PAIN, (Reported) Allergies Coded Allergies: No Known Allergies (Unverified , 10/06/18) PEG DIEHL MD Oct 09, 2018 12:50
== END 2018-10-09 11:15 | disposition home or self-care (01) | DRG 392 ==
LOC: M ED 18:14 → M ED INP 10-07 00:33 → M PED 10-07 01:38 → OBSVTOIN 10-07 12:08
PROVIDERS: ADMIT Internal Medicine; ATTEND General Practice
DX: K29.80 Duodenitis without bleeding (principal); K21.9 Gastro-esophageal reflux disease without esophagitis; E66.01 Morbid (severe) obesity due to excess calories; Z68.39 Body mass index [BMI] 39.0-39.9, adult; N20.0 Calculus of kidney; R50.9 Fever, unspecified

== ENCOUNTER 2019-02-14 18:13 | Emergency (ER) | payer OTHER ==
[~2019-02-14] VITALS: Ht 165.1 cm; Wt 113.1 kg
[~2019-02-14 18:13] MED LIST changes: +ACET-897 PO; +ACET1TAB55 PO; +BACITAB PO; +CIPR-249 PO; +FLAG500T PO; +PROT1TAB2 PO; +SUCR10SS PO
[2019-02-14] MEDS ORDERED: KETOROLAC 30 MG/ML VIAL (J1885) IV ONE (18:30)
[2019-02-14] MEDS ORDERED: ONDANSETRON 4MG/2ML VIAL (J2405) IV ONE (18:30)
[2019-02-14] MEDS ORDERED: NS 1,000 ML IV ONE (18:30)
[2019-02-14 18:51] LABS: BASO % 0.4 % (0.0-1.0); EOS # 0.3 10^3/uL (0.0-0.5); EOS % 2.6 % (0.0-3.0); HEMATOCRIT 41.6 % (36.0-47.0); HEMOGLOBIN 13.8 g/dl (12.0-15.5); LYMPH # 1.3 10^3/uL (1.5-5.0); LYMPH % 11.5 % (24.0-44.0); MEAN CORPUSCULAR HEMOGLOBIN 31.3 pg (27.0-33.0); MEAN CORPUSCULAR HGB CONC 33.2 g/dl (32.0-36.5); MEAN CORPUSCULAR VOLUME 94.3 fl (80.0-96.0); MONO # 0.8 10^3/uL (0.0-0.8); MONO % 6.6 % (0.0-5.0); NEUTROPHILS # 8.9 10^3/uL (1.5-8.5); NEUTROPHILS % 78.5 % (36.0-66.0); PLATELET COUNT, AUTOMATED 284 10^3/uL (150-450); RED BLOOD COUNT 4.41 10^6/uL (4.00-5.40); WHITE BLOOD COUNT 11.4 10^3/uL (4.0-10.0)
[2019-02-14 19:13] LABS: ALBUMIN 3.5 GM/DL (3.2-5.2); ALT/SGPT 35 U/L (12-78); BILIRUBIN,DIRECT 0.1 MG/DL (0.0-0.2); BILIRUBIN,TOTAL 0.4 MG/DL (0.2-1.0); BLOOD UREA NITROGEN 18 MG/DL (7-18); CARBON DIOXIDE LEVEL 28 MEQ/L (21-32); CHLORIDE LEVEL 105 MEQ/L (98-107); GLOMERULAR FILTRATION RATE > 60.0 (>60); GLUCOSE, FASTING 102 MG/DL (70-100); LIPASE 96 U/L (73-393); POTASSIUM SERUM 4.3 MEQ/L (3.5-5.1); SODIUM LEVEL 141 MEQ/L (136-145); TOTAL PROTEIN 7.3 GM/DL (6.4-8.2)
[2019-02-14] MEDS ORDERED: ACETAMINOPHEN 325 MG TAB PO ONE (19:30)
--- NOTE | 2019-02-14 19:58 | REPVR ---
PROCEDURE INFORMATION: Exam: CT Abdomen And Pelvis Without Contrast Exam date and time: 02/14/2019 7:04 PM Age: 28 years old Clinical history: Abdominal pain; Flank; Left; Additional info: L flank pain TECHNIQUE: Imaging protocol: Computed tomography of the abdomen and pelvis without contrast. Axial, coronal and sagittal reformatted images were created and reviewed. Radiation optimization: All CT scans at this facility use at least one of these dose optimization techniques: automated exposure control; mA and/or kV adjustment per patient size (includes targeted exams where dose is matched to clinical indication); or iterative reconstruction. COMPARISON: CT ABD/PEL W/IV CONTRAST ONLY 10/06/2018 9:00 PM FINDINGS: Lungs: Patchy reticulonodular infiltrates in the left lower lobe, suggestive of small airway disease/aspiration. Liver: Mild hepatic steatosis. Gallbladder and bile ducts: No radiodense gallstones. No biliary ductal dilatation. Pancreas: Unremarkable. Spleen: Unremarkable. Adrenals: Unremarkable. Kidneys and ureters: Mild left-sided hydronephrosis and perinephric stranding/edema, secondary to a 4 mm proximal left ureteral calculus (axial image 79 and coronal image 59). Nonobstructing bilateral renal calculi. Stomach and bowel: No bowel wall thickening. No obstruction. No pneumatosis. Appendix: Normal. Intraperitoneal space: No free fluid. No organized fluid collection. No free air. Vasculature: Unremarkable. No aneurysm. Lymph nodes: No pathologically enlarged lymph nodes. Bladder: Unremarkable. Reproductive: Intrauterine device in place. Bones/joints: No acute osseous abnormality. Soft tissues: Unremarkable. IMPRESSION: 1. Mild left-sided hydronephrosis and perinephric stranding/edema, secondary to a 4 mm proximal left ureteral calculus. 2. Additional findings, as above. Electronically signed by: Yannick Felipe On 02/14/2019 19:58:28 PM
[2019-02-14] MEDS ORDERED: CIPR-249 PO (20:14)
[2019-02-14] MEDS ORDERED: FLOM0.4C39 PO (20:14)
[2019-02-14] MEDS ORDERED: NORC1TAB7 PO (20:14)
[2019-02-14] MEDS ORDERED: NORCO 5/325MG TABLET (BULK FOR ED) PO ONE (20:15)
[2019-02-14] MEDS ORDERED: CIPROFLOXACIN 500 MG TAB PO ONE (20:15)
[2019-02-14 20:18] VITALS: BP 120/68
== END 2019-02-14 20:25 | disposition home or self-care (01) ==
LOC: M ED 18:13
DX: N20.1 Calculus of ureter (principal); N39.0 Urinary tract infection, site not specified; K21.9 Gastro-esophageal reflux disease without esophagitis; E66.9 Obesity, unspecified
CPT/HCPCS: 74176; 80048; 80076; 81001; 83690; 84702; 85025; 87086; 96374; 96375; 99284; J1885; J2405

== ENCOUNTER 2019-02-16 08:14 | Day surgery (SDC) | payer OTHER ==
[~2019-02-16] VITALS: Ht 165.1 cm; Wt 111.9 kg
[~2019-02-16 08:14] MED LIST changes: +FLOM0.4C39 PO; +NORC1TAB7 PO
[2019-02-16] MEDS ORDERED: PROMETHAZINE INJ 25 MG/ML VIAL (J2550) IV ONE (08:45)
[2019-02-16] MEDS ORDERED: MORPHINE 4 MG/ML 1ML VIAL/SYRINGE (J2270) IV ONE ×2 (08:45→10:15)
[2019-02-16 09:19] LABS: BASO % 0.3 % (0.0-1.0); EOS # 0.2 10^3/uL (0.0-0.5); EOS % 3.3 % (0.0-3.0); HEMATOCRIT 39.3 % (36.0-47.0); HEMOGLOBIN 13.2 g/dl (12.0-15.5); LYMPH # 1.5 10^3/uL (1.5-5.0); MEAN CORPUSCULAR HEMOGLOBIN 31.3 pg (27.0-33.0); MEAN CORPUSCULAR HGB CONC 33.6 g/dl (32.0-36.5); MEAN CORPUSCULAR VOLUME 93.1 fl (80.0-96.0); MONO # 0.7 10^3/uL (0.0-0.8); MONO % 9.1 % (0.0-5.0); NEUTROPHILS # 4.9 10^3/uL (1.5-8.5); PLATELET COUNT, AUTOMATED 261 10^3/uL (150-450); RED BLOOD COUNT 4.22 10^6/uL (4.00-5.40); WHITE BLOOD COUNT 7.4 10^3/uL (4.0-10.0)
--- NOTE | 2019-02-16 09:34 | REP ---
Clinical: Increasing left flank pain. Comparison: 02/14/2019. Findings: Acute left-sided obstructive uropathy is again appreciated now demonstrating increased perinephric stranding and minimally increased hydronephrosis secondary to a 4 mm obstructing calculus at the ureteropelvic junction (images 75 - 77). Mild adjacent reactive adenopathy noted. Right kidney/ureter and bladder appear normal. Liver, spleen, pancreas, gallbladder, and bilateral adrenal glands are normal for noncontrast evaluation. The enteric system is without obstruction or acute inflammatory process. Pelvis demonstrates normal bladder and age-appropriate uterus/adnexa with IUD in satisfactory position. No ascites. No free air. Abdominal aorta without aneurysm. Musculoskeletal structures are stable. Impression: Acute left-sided obstructive uropathy which demonstrates increased stranding and minimally increased hydronephrosis secondary to a stable 4 mm obstructing calculus at the ureteropelvic junction. Electronically Signed by Cale Benedict MD 02/16/2019 09:25 A
[2019-02-16 09:46] LABS: ALBUMIN 3.1 GM/DL (3.2-5.2); ALT/SGPT 30 U/L (12-78); BILIRUBIN,DIRECT 0.1 MG/DL (0.0-0.2); BILIRUBIN,TOTAL 0.3 MG/DL (0.2-1.0); BLOOD UREA NITROGEN 14 MG/DL (7-18); CALCIUM LEVEL 8.6 MG/DL (8.5-10.1); CARBON DIOXIDE LEVEL 28 MEQ/L (21-32); CHLORIDE LEVEL 105 MEQ/L (98-107); CREATININE FOR GFR 1.52 MG/DL (0.55-1.30); GLOMERULAR FILTRATION RATE 43.4 (>60); GLUCOSE, FASTING 100 MG/DL (70-100); LIPASE 74 U/L (73-393); POTASSIUM SERUM 3.7 MEQ/L (3.5-5.1); SODIUM LEVEL 138 MEQ/L (136-145); TOTAL PROTEIN 7.3 GM/DL (6.4-8.2)
[2019-02-16] MEDS ORDERED: CIPR500T3 PO (10:48)
[2019-02-16] MEDS ORDERED: FLOM0.4C39 PO (10:48)
[2019-02-16] MEDS ORDERED: ACET-897 PO (10:48)
[2019-02-16] MEDS ORDERED: NORC1TAB7 PO (10:48)
[2019-02-16] MEDS ORDERED: NS 1,000 ML IV SCH (10:58)
[2019-02-16] MEDS ORDERED: ACETAMINOPHEN TAB 650MG DOSE (2X325MG) PO PRN (11:00)
[2019-02-16] MEDS ORDERED: PERCOCET 5MG/325MG TAB PO PRN (11:00)
[2019-02-16 11:04] LABS: HCG, SERUM QUALITATIVE NEGATIVE (NEGATIVE)
[2019-02-16] MEDS ORDERED: ONDANSETRON 4MG/2ML VIAL (J2405) As Ordered ONE ×3 (11:10→19:34)
[2019-02-16] MEDS ORDERED: MORPHINE 4 MG/ML 1ML VIAL/SYRINGE (J2270) As Ordered ONE (11:10)
[2019-02-16] MEDS: ONDANSETRON 4MG/2ML VIAL (J2405) IV PRN ×2 (11:15→19:37)
[2019-02-16] MEDS ORDERED: CONRAY-60 60% 50ML VIAL (Q9961) As Ordered ONE (12:54)
[2019-02-16 13:30] VITALS: BP 130/79
[2019-02-16] MEDS: MORPHINE 2 MG/ML 1ML VIAL (J2270) IV PRN ×2 (13:49→16:26)
[2019-02-16 15:50] VITALS: BP 125/73
[2019-02-16] MEDS ORDERED: PROPOFOL 200 MG/20 ML VIAL As Ordered ONE (16:01)
[2019-02-16] MEDS ORDERED: LIDOCAINE 2% INJ 100 MG/5 ML SDV (FOR ANES.) As Ordered ONE (16:01)
[2019-02-16] MEDS ORDERED: fentaNYL 100 MCG/2 ML INJECTION (J3010) As Ordered ONE (16:02)
[2019-02-16] MEDS ORDERED: MIDAZOLAM INJ 2 MG/2 ML VIAL (J2250) As Ordered ONE (16:02)
[2019-02-16] MEDS ORDERED: dexameTHASONE 4 MG/ML 1ML VIAL (J1100) As Ordered ONE (16:02)
[2019-02-16] MEDS ORDERED: MORPHINE 2 MG/ML 1ML VIAL (J2270) As Ordered ONE (16:23)
--- NOTE | 2019-02-16 16:54 | SMCUROLCON ---
Urology Consultation General Date of Consultation 02/16/19 Reason For Consultation This patient is seen for Kidney Pain. History of Present Illness This is a 28 y/o F w/ no significant PMH, who presented to the ER for the second time this week for severe left flank pain and n/v. A CT A/P was done and was n otable for an obstructing 4mm proximal left ureteral stone and a small nonobstructing left kidney stone. She notes that since she left the ER on Friday her pain has only gotten worse. She has never had kidney stones before. She denies fevers or chills. She denies dysuria. Past Medical History Medical History None Surgical Hstory Appendectomy, LEEP Medications Current Medications Current Medications Medications (Trade) Dose Ordered Sig/Francisco Route PRN Reason Start Time Stop Time Status Last Admin Dose Admin Acetaminophen (Tylenol Tab) 650 mg Q4HP PRN PO MILD PAIN or TEMP > 101 02/16/19 11:00 Home Med (Med Rec Complete!) ASDIRECTED XX 02/16/19 11:00 02/16/19 10:50 DC Morphine Sulfate (Morphine Sulfate Inj) 2 mg Q2HP PRN IV SEVERE PAIN (PS 8-10) 02/16/19 11:00 02/16/19 16:26 Ondansetron HCl (ZOFRAN INJection) 4 mg Q6HP PRN IV NAUSEA OR VOMITING 02/16/19 11:00 02/16/19 11:15 Oxycodone/ Acetaminophen (Percocet 5mg/ 325mg Tablet) 2 tab Q6H PRN PO MODERATE/SEVERE PAIN (PS 5-10) 02/16/19 11:00 Sodium Chloride 1,000 ml @ 50 mls/hr Q20H IV 02/16/19 10:58 02/16/19 11:16 Allergies Allergies: Coded Allergies: No Known Allergies (Unverified , 10/06/18) Review of Systems General: Denies: Fatigue, Malaise Constitutional: Denies: Fever, Chills, Sweats, Weakness, Malaise Pulmonary: Denies: Dyspnea, Cough Cardiovascular: Denies Chest Pain, Denies Palpitations Gastrointestinal: Reports: Nausea, Vomiting, Abdominal Pain (left flank pain radiating to lower left abdomen) Genitourinary: Denies: Dysuria, Frequency, Incontinence, Hematuria Musculoskeletal: Reports: Back Pain (left flank pain); Denies: Neck Pain Psych: Reports: Mood Normal; Denies: Anxiety, Depression Physical Examination General Exam: Alert, Cooperative, No Acute Distress Chest Exam: Clear to auscultation, Normal air movement Heart Exam: Rate Normal Abdomen Exam: Soft, Tenderness (LLQ) Skin Exam: Nl turgor and temperature Neuro Exam: Normal Speech Psych Exam: Mental status NL, Mood NL Vital Signs/I&O Vital Signs Date Time Temp Pulse Resp B/P (MAP) Pulse Ox O2 Delivery O2 Flow Rate FiO2 02/16/19 16:30 102 20 132/86 (101) 97 Room Air 02/16/19 13:30 98.9 Laboratory Data 24H Labs Laboratory Tests 2 02/16/19 08:50: Immature Granulocyte % (Auto) 0.3, Neutrophils (%) (Auto) 66.0, Lymphocytes (%) (Auto) 21.0L, Monocytes (%) (Auto) 9.1H, Eosinophils (%) (Auto) 3.3H, Basophils (%) (Auto) 0.3, Neutrophils # (Auto) 4.9, Lymphocytes # (Auto) 1.5, Monocytes # (Auto) 0.7, Eosinophils # (Auto) 0.2, Basophils # (Auto) 0.0, Nucleated Red Blood Cells % (auto) 0.0, Anion Gap 5L, Glomerular Filtration Rate 43.4L, Calcium Level 8.6, Total Bilirubin 0.3, Direct Bilirubin 0.1, Aspartate Amino Tr ansf (AST/SGOT) 22, Alanine Aminotransferase (ALT/SGPT) 30, Alkaline Phosphatase 94, Total Protein 7.3, Albumin 3.1L, Albumin/Globulin Ratio 0.74L, Lipase 74, Human Chorionic Gonadotropin, Qual NEGATIVE 02/16/19 08:51: Urine Color YELLOW, Urine Appearance HAZY, Urine pH 6.0, Urine Specific [place] 1.019, Urine Protein NEGATIVE, Urine Glucose (UA) NEGATIVE, Urine Ketones NEGATI VE, Urine Blood 1+H, Urine Nitrite NEGATIVE, Urine Bilirubin NEGATIVE, Urine Urobilinogen 0.2, Urine Leukocyte Esterase TRACEH, Urine WBC (Auto) 8H, Urine RBC (Auto) 4H, Urine Hyaline Casts (Auto) 0, Urine Bacteria (Auto) NEGATIVE, Urine Squamous Epithelial Cells 11, Urine Mucus (Auto) SMALL, Urine Sperm (Auto) , Lactic Acid Level 0.7 02/16/19 09:05: POC Glucose (Misc Panel) 104, POC Sodium (Misc Panel) 138, POC Potassium (Misc Panel) 3.8, POC Chloride (Misc Panel) 101, POC Total CO2 (Misc Panel) 25.0, POC Blood Urea Nitrogen (Misc Panel 14, POC Ionized Calcium (Misc Panel) 4.7, POC Creatinine (Misc Panel) 1.6H, POC Hematocrit (Misc Panel) 40.0 CBC/BMP Laboratory Tests 02/16/19 08:50 Microbiology Microbiology 02/16/19 Urine Culture, Received Pending Assessment This is a 28 y/o F w/ a 4mm obstructing proximal left ureteral stone. Given the intractable pain, I recommended that we take her to the OR today for cystoscopy, left ureteroscopy w/ laser lithotripsy, and a left ureteral stent placement. After a discussion of the risks and benefits of the procedure, informed consent was signed. Plan - informed consent signed for cystoscopy, left ureteroscopy w/ laser l ithotripsy, and a left ureteral stent placement - 2g ancef OCOR - NPO - patient may be discharged home postop if her pain is under control LILIANA GARCIA MD Feb 16, 2019 16:54
[2019-02-16] MEDS ORDERED: KETOROLAC 30 MG/ML VIAL (J1885) As Ordered ONE (17:12)
[2019-02-16] MEDS ORDERED: KETOROLAC 30 MG/ML VIAL (J1885) IV ONE (17:30)
[2019-02-16] MEDS ORDERED: ceFAZolin 2 GM/D5W 50 ML IV BAG (J0690 PER 500MG) As Ordered ONE (17:42)
[2019-02-16] MEDS ORDERED: ceFAZolin SOD 2 GM in IV 1 EA IV ONE (18:00)
[2019-02-16] MEDS ORDERED: OXYB5TAB10 PO (19:12)
[2019-02-16] MEDS ORDERED: MEPERIDINE INJ 25 MG/ML VIAL (J2175) IV PRN (19:15)
[2019-02-16] MEDS ORDERED: LR 1,000 ML IV SCH (19:15)
[2019-02-16] MEDS ORDERED: ONDANSETRON 4MG/2ML VIAL (J2405) IV PRN (19:15)
[2019-02-16] MEDS ORDERED: fentaNYL 100 MCG/2 ML INJECTION (J3010) IV PRN (19:15)
[2019-02-16] MEDS ORDERED: METOCLOPRAMIDE INJ 10MG/2ML VIAL (J2765) IV PRN (19:15)
[2019-02-16] MEDS ORDERED: oxyCODONE 5MG TAB PO PRN (19:15)
--- NOTE | 2019-02-16 19:32 | REP ---
Clinical: Ureteral stent placement. Technique: Intraoperative fluoroscopic imaging. Findings: Intraoperative fluoroscopic images demonstrate the patient to be status post satisfactory left ureteral stent placement. Mild hydronephrosis is appreciated. Total fluoroscopic time 13 seconds (1.2 mGy). Impression: Status post left ureteral stent placement. Electronically Signed by Cale Benedict MD 02/16/2019 07:23 P
[2019-02-16 20:15] VITALS: BP 145/74
[2019-02-16 20:45] VITALS: BP 129/72
--- NOTE | 2019-02-16 22:10 | RO ---
DATE OF PROCEDURE: 02/16/2019 PREPROCEDURE DIAGNOSIS: Left ureteral stone. POSTPROCEDURE DIAGNOSIS: Left ureteral stone. PROCEDURE: Cystoscopy, left ureteroscopy with laser lithotripsy and basket extraction of stones, left retrograde pyelogram with intraoperative interpretation of images, left ureteral stent placement. SURGEON: Frederic Ruiz MD EQUIPMENT PROCESSOR: None. ANESTHESIA: General. OPERATIVE INDICATIONS: This is a 28-year-old female who presented to the emergency room with severe left flank pain due to an obstructing 5 mm proximal left ureteral stone. She was brought to the operating room today for treatment. DESCRIPTION OF PROCEDURE: The patient was brought to the operating room and general anesthesia was induced. Prophylactic antibiotics were infused. She was then placed in the dorsal lithotomy position and prepped and draped in the usual sterile fashion. A rigid cystoscope was then inserted into the urethral meatus and advanced into the bladder. A guidewire was advanced up the left collecting system. I then advanced a ureteral access sheath over the wire into the left collecting system. I went up the access sheath with a flexible ureteroscope and within the proximal ureter, I had had a moderate amount of difficulty advancing the scope into the kidney. This was due to moderate narrowing within the proximal left ureter. Ultimately, I was able to negotiate the scope past this narrow area in the ureter and into the more proximal ureter and into the left renal pelvis. Within the proximal ureter, the 5 mm stone was seen. The stone was then fragmented into smaller pieces using a 272 micron laser fiber. All the fragments were then removed using a basket. I examined the remainder of the kidney, and no additional stones were seen. There was some debris in the lower pole calyx but no additional stones were seen. At this point, a retrograde pyelogram was performed. It was notable for moderate left hydronephrosis, no extravasation. I then withdrew the ureteroscope along with the access sheath and no additional stones were seen. I then utilized the wire to advance a 6-Cymro x 22-32 cm JJ ureteral stent into the left collecting system. The wire was removed, and there were adequate curls of the stent in the left renal pelvis and in the bladder. The bladder was then emptied of all fluids and this marked the conclusion of the procedure. The patient was taken out of the dorsal lithotomy position, awakened from anesthesia and transported to the recovery room in stable condition. Estimated blood loss: 5 mL. Complications: None. Specimens: Kidney stone fragments. PLAN: I will leave the patient's stent in for approximately 3-4 weeks given the moderate narrowing in the proximal ureter and difficulty getting the scope into the kidney. I will have her followup in the clinic at the time for stent removal. DIXON
== END 2019-02-16 21:30 | disposition home or self-care (01) ==
LOC: M ED 08:14 → M SDC 08:15 → M PED 13:24 → M SDC 21:30
PROVIDERS: ATTEND Urology
DX: N20.1 Calculus of ureter (principal)
CPT/HCPCS: 52356; 74176; 74420; 80047; 80048; 80076; 81001; 82360; 83605; 83690; 84703; 85025; 87086; 88300; 96361; 96374; 96375; 96376; 99284; C1769; C1894; C2617; J0690; J1100; J1885; J2250; J2270; J2405; J3010; Q9961

== ENCOUNTER 2019-10-25 15:45 | Emergency (ER) | payer BC ==
[~2019-10-25 15:45] MED LIST changes: +CIPR500T3 PO; +OXYB5TAB10 PO; -SUCR10SS PO; +SUCR1ORA2 PO
[2019-10-25] MEDS ORDERED: KETOROLAC 30 MG/ML 1ML VIAL As Ordered ONE (17:16)
[2019-10-25] MEDS ORDERED: cefTRIAXone SOD 1GM VIAL (J0696 PER 250MG) As Ordered ONE ×2 (17:33→17:34)
[2019-12-10 22:12] LABS: BASO % 0.3 % (0.0-1.0); EOS # 0.4 10^3/uL (0.0-0.5); EOS % 4.8 % (0.0-3.0); HEMOGLOBIN 13.9 g/dl (12.0-15.5); LYMPH % 25.5 % (24.0-44.0); MEAN CORPUSCULAR HEMOGLOBIN 31.2 pg (27.0-33.0); MEAN CORPUSCULAR HGB CONC 33.1 g/dl (32.0-36.5); MEAN CORPUSCULAR VOLUME 94.4 fl (80.0-96.0); MONO # 0.7 10^3/uL (0.0-0.8); MONO % 8.9 % (0.0-5.0); NEUTROPHILS # 4.7 10^3/uL (1.5-8.5); NEUTROPHILS % 60.4 % (36.0-66.0); PLATELET COUNT, AUTOMATED 263 10^3/uL (150-450); RED BLOOD COUNT 4.45 10^6/uL (4.00-5.40); WHITE BLOOD COUNT 7.7 10^3/uL (4.0-10.0)
[2020-01-08 22:07] LABS: ALBUMIN 3.5 GM/DL (3.2-5.2); ALT/SGPT 37 U/L (12-78); BILIRUBIN,TOTAL 0.5 MG/DL (0.2-1.0); BLOOD UREA NITROGEN 15 MG/DL (7-18); CALCIUM LEVEL 8.6 MG/DL (8.5-10.1); CARBON DIOXIDE LEVEL 28 MEQ/L (21-32); CHLORIDE LEVEL 105 MEQ/L (98-107); CPK CREATINE PHOSPHOKINASE 56 U/L (26-192); CREATININE FOR GFR 0.89 MG/DL (0.55-1.30); GLOMERULAR FILTRATION RATE > 60.0 (>60); GLUCOSE, FASTING 95 MG/DL (70-100); POTASSIUM SERUM 3.8 MEQ/L (3.5-5.1); SODIUM LEVEL 138 MEQ/L (136-145); TOTAL PROTEIN 7.2 GM/DL (6.4-8.2)
== END 2019-10-25 19:22 | disposition home or self-care (01) ==
LOC: M ED 15:45
DX: T24.201A Burn of second degree of unspecified site of right lower limb, except ankle and foot, initial encounter (principal); L03.115 Cellulitis of right lower limb; X58.XXXA Exposure to other specified factors, initial encounter; Y92.833 Campsite as the place of occurrence of the external cause; Y93.9 Activity, unspecified; Y99.9 Unspecified external cause status
CPT/HCPCS: 80053; 82550; 85025; 85652; 86140; 87040; 96361; 96374; 96375; 96376; 99284; J0696; J1885

== ENCOUNTER 2020-01-24 14:47 | Emergency (ER) | payer BC ==
[~2020-01-24] VITALS: Ht 165.1 cm; Wt 106.8 kg
[2020-01-24 15:00] VITALS: O2SAT 99
[2020-01-24 16:54] LABS: BASO % 0.3 % (0.0-1.0); EOS # 0.3 10^3/uL (0.0-0.5); EOS % 4.6 % (0.0-3.0); HEMATOCRIT 42.6 % (36.0-47.0); HEMOGLOBIN 13.8 g/dl (12.0-15.5); LYMPH # 2.1 10^3/uL (1.5-5.0); LYMPH % 29.6 % (24.0-44.0); MEAN CORPUSCULAR HEMOGLOBIN 30.3 pg (27.0-33.0); MEAN CORPUSCULAR HGB CONC 32.4 g/dl (32.0-36.5); MEAN CORPUSCULAR VOLUME 93.6 fl (80.0-96.0); MONO # 0.6 10^3/uL (0.0-0.8); NEUTROPHILS % 56.2 % (36.0-66.0); PLATELET COUNT, AUTOMATED 273 10^3/uL (150-450); RED BLOOD COUNT 4.55 10^6/uL (4.00-5.40)
[2020-01-24 17:24] LABS: ALBUMIN 3.6 GM/DL (3.2-5.2); ALT/SGPT 32 U/L (12-78); BILIRUBIN,DIRECT 0.1 MG/DL (0.0-0.2); BILIRUBIN,TOTAL 0.3 MG/DL (0.2-1.0); BLOOD UREA NITROGEN 16 MG/DL (7-18); CALCIUM LEVEL 8.9 MG/DL (8.5-10.1); CARBON DIOXIDE LEVEL 30 MEQ/L (21-32); CHLORIDE LEVEL 106 MEQ/L (98-107); CREATININE FOR GFR 0.85 MG/DL (0.55-1.30); GLOMERULAR FILTRATION RATE > 60.0 (>60); GLUCOSE, FASTING 91 MG/DL (70-100); LIPASE 83 U/L (73-393); POTASSIUM SERUM 4.1 MEQ/L (3.5-5.1); SODIUM LEVEL 140 MEQ/L (136-145); TOTAL PROTEIN 7.1 GM/DL (6.4-8.2)
[2020-01-24 17:30] LABS: HCG, SERUM QUALITATIVE NEGATIVE (NEGATIVE)
--- NOTE | 2020-01-24 17:44 | REPVR ---
PROCEDURE INFORMATION: Exam: US Pelvis Complete, Transabdominal and US Pelvis, Transvaginal Exam date and time: 01/24/2020 5:12 PM Age: 29 years old Clinical indication: Other: Bleeding; Additional info: Placement, irreg vaginal bleeding TECHNIQUE: Imaging protocol: Real-time transabdominal and transvaginal pelvic ultrasound (complete) with image documentation. Transvaginal imaging was used for better evaluation of the endometrium, adnexa, and/or cervix. COMPARISON: US PELVIC NON-OB COMPLETE 12/06/2015 5:24 PM FINDINGS: Uterus/cervix: 8.6 x 2.7 x 2.6 cm. Normal endometrial thickness, meauring 9 mm in thickness. Intrauterine device in place. Cervical nabothian cysts. Right ovary: 2.9 x 2.7 x 2.6 cm. No mass. Normal ovarian blood flow. Left ovary: 2.9 x 2.2 x 3.1 cm. No mass. Normal ovarian blood flow. Intraperitoneal space: No intraperitoneal free fluid. Urinary bladder: Normal. IMPRESSION: No acute sonographic findings. Electronically signed by: Yannick Felipe On 01/24/2020 17:44:22 PM
[2020-01-24 18:47] VITALS: BP 120/68
== END 2020-01-24 19:00 | disposition home or self-care (01) ==
LOC: M ED 14:47
DX: R51.9 Headache, unspecified (principal); M79.10 Myalgia, unspecified site; N92.6 Irregular menstruation, unspecified

== ENCOUNTER 2020-03-16 21:27 | Emergency (ER) | payer BC ==
[~2020-03-16] VITALS: Ht 165.1 cm; Wt 113.3 kg
[2020-03-16] MEDS ORDERED: METOCLOPRAMIDE 10 MG TAB PO ONE (22:15)
[2020-03-16] MEDS ORDERED: ACETAMINOPHEN 325 MG TAB PO ONE (22:15)
[2020-03-16 22:49] LABS: HEMATOCRIT 44.8 % (36.0-47.0); HEMOGLOBIN 14.2 g/dl (12.0-15.5); MEAN CORPUSCULAR HEMOGLOBIN 30.1 pg (27.0-33.0); MEAN CORPUSCULAR HGB CONC 31.7 g/dl (32.0-36.5); MEAN CORPUSCULAR VOLUME 94.9 fl (80.0-96.0); PLATELET COUNT, AUTOMATED 235 10^3/uL (150-450); RED BLOOD COUNT 4.72 10^6/uL (4.00-5.40); WHITE BLOOD COUNT 4.6 10^3/uL (4.0-10.0)
[2020-03-16 23:16] LABS: BLOOD UREA NITROGEN 12 MG/DL (7-18); CALCIUM LEVEL 8.6 MG/DL (8.5-10.1); CARBON DIOXIDE LEVEL 31 MEQ/L (21-32); CHLORIDE LEVEL 105 MEQ/L (98-107); CREATININE FOR GFR 0.92 MG/DL (0.55-1.30); GLOMERULAR FILTRATION RATE > 60.0 (>60); GLUCOSE, FASTING 90 MG/DL (70-100); HCG, SERUM QUALITATIVE NEGATIVE (NEGATIVE); POTASSIUM SERUM 3.9 MEQ/L (3.5-5.1); SODIUM LEVEL 140 MEQ/L (136-145)
[2020-03-16 23:27] LABS: RSV AMPLIFICATION NEGATIVE (NEGATIVE)
[2020-03-16] MEDS ORDERED: REGL10TA6 PO (23:57)
[2020-03-16] MEDS ORDERED: PROAAER10 INH (23:57)
[2020-03-17 00:15] VITALS: BP 120/60
== END 2020-03-17 00:22 | disposition home or self-care (01) ==
LOC: M ED 21:27
DX: U07.1 COVID-19 (principal)

== ENCOUNTER → 2020-11-19 | Outpatient (CLI) | payer BC ==
[~2020-11-19] MED LIST changes: +PROAAER10 INH; +REGL10TA6 PO
[2020-11-19 09:32] LABS: BASO % 0.4 % (0.0-1.0); EOS # 0.4 10^3/uL (0.0-0.5); HEMOGLOBIN 14.2 g/dl (12.0-15.5); LYMPH # 1.9 10^3/uL (1.5-5.0); LYMPH % 27.4 % (24.0-44.0); MEAN CORPUSCULAR HEMOGLOBIN 31.5 pg (27.0-33.0); MEAN CORPUSCULAR HGB CONC 33.8 g/dl (32.0-36.5); MEAN CORPUSCULAR VOLUME 93.1 fl (80.0-96.0); MONO # 0.6 10^3/uL (0.0-0.8); MONO % 8.5 % (2.0-8.0); NEUTROPHILS # 4.1 10^3/uL (1.5-8.5); NEUTROPHILS % 58.4 % (36.0-66.0); PLATELET COUNT, AUTOMATED 280 10^3/uL (150-450); RED BLOOD COUNT 4.51 10^6/uL (4.00-5.40); WHITE BLOOD COUNT 6.9 10^3/uL (4.0-10.0)
[2020-11-19 09:59] LABS: ALBUMIN 3.4 GM/DL (3.2-5.2); ALT/SGPT 35 U/L (12-78); BILIRUBIN,TOTAL 0.4 MG/DL (0.2-1.0); BLOOD UREA NITROGEN 15 MG/DL (7-18); CALCIUM LEVEL 8.7 MG/DL (8.5-10.1); CARBON DIOXIDE LEVEL 27 MEQ/L (21-32); CHLORIDE LEVEL 109 MEQ/L (98-107); CHOLESTEROL LEVEL 189 MG/DL (<200); CHOLESTEROL RISK RATIO 3.937 (<5); FERRITIN 97 NG/ML (8-252); FREE T4 1.04 NG/DL (0.76-1.46); GLOMERULAR FILTRATION RATE > 60.0 (>60); GLUCOSE, FASTING 100 MG/DL (70-100); HDL CHOLESTEROL 48 MG/DL (>40); IRON (FE) 100 UG/DL (50-170); LDL CHOLESTEROL 117 MG/DL (<100); MAGNESIUM LEVEL 2.2 MG/DL (1.8-2.4); NON-HDL-C 141 MG/DL; PERCENT SATURATION 27.3 % (13.2-45.0); POTASSIUM SERUM 4.5 MEQ/L (3.5-5.1); SODIUM LEVEL 140 MEQ/L (136-145); TOTAL IRON BINDING CAPACITY 366 UG/DL (250-450); TOTAL PROTEIN 6.9 GM/DL (6.4-8.2); TRIGLYCERIDES LEVEL 121 MG/DL (<150)
[2020-11-19 10:07] LABS: HEMOGLOBIN A1c 5.3 %
[2020-11-20 10:12] LABS: TOTAL 25(OH) VITAMIN D 24.4 NG/ML (30.0-100.0); VITAMIN B12 LEVEL 392 PG/ML
[2020-11-20 10:13] LABS: FOLATE 9.9 NG/ML
== END ==
LOC: M LAB 08:39
PROVIDERS: ATTEND Nurse Practitioner Family
DX: R53.82 Chronic fatigue, unspecified (principal); Z13.228 Encounter for screening for other metabolic disorders; Z13.29 Encounter for screening for other suspected endocrine disorder; E66.9 Obesity, unspecified

== ENCOUNTER → 2022-02-11 | Outpatient (CLI) | payer OTHER | LOC: M WHC 07:13 | PROVIDERS: ATTEND Nurse Practitioner Family | DX: Z12.31 Encounter for screening mammogram for malignant neoplasm of breast (principal); Z80.3 Family history of malignant neoplasm of breast; Z80.49 Family history of malignant neoplasm of other genital organs ==

== ENCOUNTER → 2022-09-12 | Outpatient (REF) | payer OTHER ==
[2022-09-12 18:49] LABS: BASO % 0.6 % (0.0-1.0); EOS # 0.2 10^3/uL (0.0-0.5); EOS % 3.3 % (0.0-3.0); HEMATOCRIT 44.3 % (36.0-47.0); HEMOGLOBIN 14.6 g/dl (12.0-15.5); LYMPH % 28.6 % (24.0-44.0); MEAN CORPUSCULAR HEMOGLOBIN 31.3 pg (27.0-33.0); MEAN CORPUSCULAR VOLUME 95.1 fl (80.0-96.0); MONO # 0.6 10^3/uL (0.0-0.8); MONO % 8.4 % (2.0-8.0); NEUTROPHILS # 4.2 10^3/uL (1.5-8.5); NEUTROPHILS % 58.8 % (36.0-66.0); PLATELET COUNT, AUTOMATED 299 10^3/uL (150-450); RED BLOOD COUNT 4.66 10^6/uL (4.00-5.40)
[2022-09-12 18:53] LABS: THYROID STIMULATING HORMONE 1.741 uIU/ML (0.55-4.78); TOTAL 25(OH) VITAMIN D 25.6 NG/ML (20.0-100.0)
[2022-09-12 18:54] LABS: ALBUMIN 3.9 G/DL (3.2-5.2); ALKALINE PHOSPHATASE 89 U/L (46-116); ALT/SGPT 30 U/L (7.0-40); AST/SGOT < 8 U/L (<34); BILIRUBIN,TOTAL 0.4 MG/DL (0.3-1.2); BLOOD UREA NITROGEN 11 MG/DL (9-23); CALCIUM LEVEL 8.8 MG/DL (8.5-10.1); CARBON DIOXIDE LEVEL 29 MMOL/L (20-31); CHLORIDE LEVEL 106 MMOL/L (98-107); CHOLESTEROL LEVEL 182 MG/DL (<200); CHOLESTEROL RISK RATIO 3.12 (<5); CREATININE FOR GFR 0.79 MG/DL (0.55-1.30); GLOMERULAR FILTRATION RATE > 60.0 (>60); GLUCOSE, FASTING 81 MG/DL (60-100); HDL CHOLESTEROL 58.3 MG/DL (>40); LDL CHOLESTEROL 108.3 MG/DL (<100); NON-HDL-C 123.7 MG/DL; POTASSIUM SERUM 4.7 MMOL/L (3.5-5.1); SODIUM LEVEL 140 MMOL/L (136-145); TOTAL PROTEIN 7.1 G/DL (5.7-8.2); TRIGLYCERIDES LEVEL 77 MG/DL (<150)
[2022-09-12 20:07] LABS: HEMOGLOBIN A1c 4.8 % (4.0-6.0)
== END ==
LOC: M LAB REF 17:28
PROVIDERS: ATTEND Nurse Practitioner Family
DX: Z13.228 Encounter for screening for other metabolic disorders (principal)

== ENCOUNTER → 2022-11-13 | Outpatient (REF) | payer OTHER ==
[2022-11-13 19:33] LABS: CANNABINOIDS URINE REFLEX NEGATIVE (NEGATIVE); PHENCYCLIDINE URINE REFLEX NEGATIVE (NEGATIVE)
[2022-11-13 19:34] LABS: AMPHETAMINES URINE REFLEX NEGATIVE (NEGATIVE); BARBITURATES URINE REFLEX NEGATIVE (NEGATIVE); BENZODIAZEPINES URINE REFLEX NEGATIVE (NEGATIVE); COCAINE METABOLITE URINE REFLE NEGATIVE (NEGATIVE); METHADONE URINE REFLEX NEGATIVE (NEGATIVE); OPIATES URINE REFLEX NEGATIVE (NEGATIVE)
== END ==
LOC: M LAB REF 16:05
PROVIDERS: ATTEND Nurse Practitioner Family
DX: R63.8 Other symptoms and signs concerning food and fluid intake (principal)

== ENCOUNTER 2023-01-17 07:18 | Emergency (ER) | payer OTHER ==
[~2023-01-17] VITALS: Ht 170.2 cm; Wt 109.4 kg
[~2023-01-17 07:18] MED LIST changes: -OXYB5TAB10 PO; +OXYB5TAB11 PO
[2023-01-17] MEDS ORDERED: iud (07:27)
[2023-01-17 08:21] LABS: BASO % 0.5 % (0.0-1.0); EOS # 0.3 10^3/uL (0.0-0.5); EOS % 4.6 % (0.0-3.0); HEMATOCRIT 42.6 % (36.0-47.0); HEMOGLOBIN 14.4 g/dl (12.0-15.5); LYMPH # 1.7 10^3/uL (1.5-5.0); LYMPH % 25.7 % (24.0-44.0); MEAN CORPUSCULAR HEMOGLOBIN 32.1 pg (27.0-33.0); MEAN CORPUSCULAR HGB CONC 33.8 g/dl (32.0-36.5); MEAN CORPUSCULAR VOLUME 94.9 fl (80.0-96.0); MONO # 0.5 10^3/uL (0.0-0.8); MONO % 6.9 % (2.0-8.0); PLATELET COUNT, AUTOMATED 278 10^3/uL (150-450); RED BLOOD COUNT 4.49 10^6/uL (4.00-5.40); WHITE BLOOD COUNT 6.5 10^3/uL (4.0-10.0)
[2023-01-17] MEDS ORDERED: MORPHINE 4 MG/ML 1ML VIAL IV ONE (08:30)
[2023-01-17] MEDS ORDERED: ONDANSETRON 4MG 2ML VIAL IV ONE (08:30)
[2023-01-17 08:58] LABS: HCG, SERUM QUALITATIVE NEGATIVE (NEGATIVE)
[2023-01-17] MEDS ORDERED: KETOROLAC 30 MG/ML 1ML VIAL IV ONE (09:05)
[2023-01-17] MEDS ORDERED: ISOVUE-370 76% 100ML VIAL As Ordered ONE (09:35)
[2023-01-17 10:28] LABS: GC DNA AMPLIFICATION NEGATIVE (NEGATIVE)
[2023-01-17] MEDS ORDERED: KETO10TAB PO (10:32)
[2023-01-17 10:46] VITALS: BP 105/7; TEMP 97.9; O2SAT 97
== END 2023-01-17 10:51 | disposition home or self-care (01) ==
LOC: M ED 07:18
DX: R10.2 Pelvic and perineal pain (principal); N94.89 Other specified conditions associated with female genital organs and menstrual cycle; F10.10 Alcohol abuse, uncomplicated; Z87.442 Personal history of urinary calculi; Z79.899 Other long term (current) drug therapy
CPT/HCPCS: 74177; 76830; 76856; 80047; 81001; 84703; 85025; 87086; 87210; 87661; 87810; 87850; 93976; 96374; 99283; J1885; Q9967

== ENCOUNTER → 2023-05-02 | Outpatient (REF) | payer OTHER ==
[~2023-05-02] MED LIST changes: +APAP325T4 PO; +KETO10TAB PO; -OXYB5TAB11 PO; +OXYB5TAB14 PO; +THERTAB52 PO; +iud
== END ==
LOC: M SFHCWAGY 08:28
PROVIDERS: ATTEND Obstetrics & Gynecology
DX: N93.9 Abnormal uterine and vaginal bleeding, unspecified (principal)

== ENCOUNTER 2023-05-09 08:52 | Observation (INO) | payer OTHER ==
[2023-05-09] VITALS (8 sets, daily range): BP systolic 107–117; BP diastolic 60–79; TEMP 97.2–97.9; O2SAT 93–97
[~2023-05-09] VITALS: Ht 170.2 cm; Wt 118.3 kg
[~2023-05-09 08:52] MED LIST changes: +LR 1,000 ML IV SCH
[2023-05-09] MEDS ORDERED: MIDAZOLAM INJ 2MG/2ML VIAL As Ordered ONE (09:09)
[2023-05-09] MEDS ORDERED: propofoL 200 MG/20 ML VIAL As Ordered ONE (09:09)
[2023-05-09] MEDS ORDERED: dexmedeTOMIDine (4MCG/ML)200MCG/50ML BTL (PRECEDEX) As Ordered ONE (09:09)
[2023-05-09] MEDS ORDERED: ROCURONIUM BROMIDE 50MG/5ML VIAL As Ordered ONE (09:09)
[2023-05-09] MEDS ORDERED: fentaNYL 250 MCG/5 ML INJECTION As Ordered ONE (09:09)
[2023-05-09] MEDS ORDERED: KETOROLAC 60MG 2ML VIAL As Ordered ONE (09:09)
[2023-05-09] MEDS ORDERED: LIDOCAINE 2% 100MG/5ML SDV (FOR ANES.) As Ordered ONE (09:09)
[2023-05-09] MEDS ORDERED: ONDANSETRON 4MG 2ML VIAL As Ordered ONE (09:09)
[2023-05-09 09:32] LABS: HEMATOCRIT 45.2 % (36.0-47.0); HEMOGLOBIN 15.2 g/dl (12.0-15.5); MEAN CORPUSCULAR HEMOGLOBIN 31.4 pg (27.0-33.0); MEAN CORPUSCULAR HGB CONC 33.6 g/dl (32.0-36.5); MEAN CORPUSCULAR VOLUME 93.4 fl (80.0-96.0); PLATELET COUNT, AUTOMATED 290 10^3/uL (150-450); RED BLOOD COUNT 4.84 10^6/uL (4.00-5.40); WHITE BLOOD COUNT 6.8 10^3/uL (4.0-10.0)
[2023-05-09] MEDS: SCOPOLAMINE 1MG TRANSDERMAL PATCH TOP ONE (09:58)
[2023-05-09] MEDS: LR 1,000 ML IV SCH ×2 (09:59→12:20)
[2023-05-09] MEDS ORDERED: SEVOFLURANE INHAL SOLN 250 ML BTL As Ordered ONE (10:00)
[2023-05-09] MEDS: ceFAZolin SOD 2 GM in IV 1 EA IV ONE (10:32)
[2023-05-09] MEDS: ceFAZolin 1GM VIAL As Ordered ONE (10:32)
[2023-05-09] MEDS ORDERED: PHENYLephrine 500MCG 5ML (100MCG/ML) SYRINGE As Ordered ONE (10:40)
[2023-05-09] MEDS ORDERED: ACETAMINOPHEN 1000MG 100ML IV BAG As Ordered ONE (11:08)
[2023-05-09] MEDS ORDERED: HYDROmorphone HCL 2MG/ML 1ML VIAL As Ordered ONE (11:09)
[2023-05-09] MEDS: METHYLENE BLUE 0.5% (5MG/ML) 10 ML AMP (PROVAYBLUE) As Ordered ONE (11:29)
[2023-05-09] MEDS ORDERED: SUGAMMADEX SODIUM 500 MG/5 ML VIAL (BRIDION) As Ordered ONE (11:49)
[2023-05-09] MEDS ORDERED: PERCOCET 5MG/325MG TAB PO PRN (12:20)
[2023-05-09] MEDS ORDERED: fentaNYL 100 MCG/2 ML INJECTION IV PRN (12:20)
[2023-05-09] MEDS ORDERED: MORPHINE 4 MG/ML 1ML VIAL IV PRN (12:20)
[2023-05-09] MEDS ORDERED: METOCLOPRAMIDE INJ 10MG/2ML VIAL IV PRN (12:20)
[2023-05-09] MEDS ORDERED: LR 1,000 ML IV SCH (12:20)
[2023-05-09] MEDS ORDERED: ONDANSETRON 4MG 2ML VIAL IV PRN ×2 (12:20)
[2023-05-09] MEDS ORDERED: IBUP80TA PO (12:21)
[2023-05-09] MEDS ORDERED: PERCOCET PO (12:21)
[2023-05-09] MEDS ORDERED: COLA100C5 PO (12:21)
[2023-05-09] MEDS: HYDROMORPHONE HCL 0.5 MG/ 0.5 ML SYRINGE IV PRN (12:48)
[2023-05-09] MEDS: oxyCODONE 5MG TAB PO PRN (12:48)
[2023-05-09] MEDS: PROMETHAZINE 25MG/ML 1ML VIAL IV PRN (13:11)
[2023-05-09] MEDS: KETOROLAC 30 MG/ML 1ML VIAL IV SCH (17:17)
[2023-05-09] MEDS: PERCOCET 5MG/325MG TAB PO PRN (17:20)
[2023-05-09] MEDS: DOCUSATE SODIUM 100MG CAPSULE PO SCH (20:43)
[2023-05-10 00:25] VITALS: BP 114/63; TEMP 97.5; O2SAT 94
[2023-05-10 03:50] VITALS: O2SAT 94
[2023-05-10 04:42] VITALS: BP 101/62; TEMP 97.5; O2SAT 96
[2023-05-10 09:00] VITALS: BP 117/63; TEMP 98.1; O2SAT 95
[2023-05-10] MEDS ORDERED: IBUPROFEN 800 MG TAB PO SCH (14:00)
== END 2023-05-10 11:40 | disposition home or self-care (01) ==
LOC: M SDC 08:52 → M MS5PR 08:53 → M MSPAV 14:40 → M SDC 05-10 12:19
PROVIDERS: ADMIT Obstetrics & Gynecology; ATTEND Obstetrics & Gynecology
DX: N93.9 Abnormal uterine and vaginal bleeding, unspecified (principal); R10.2 Pelvic and perineal pain; K21.9 Gastro-esophageal reflux disease without esophagitis; Z79.899 Other long term (current) drug therapy
CPT/HCPCS: 36415; 58571; 81025; 85027; 86850; 86900; 86901; 87635; 88307; 96375; 96376; J0131; J0665; J0690; J1100; J1170; J1885; J2250; J2371; J2405; J2550; J3010; Q9968; S2900

== ENCOUNTER → 2023-05-22 | Outpatient (REF) | payer OTHER ==
[~2023-05-22] MED LIST changes: +COLA100C5 PO; +IBUP80TA PO; -LR 1,000 ML IV SCH; +PERCOCET PO
[2023-05-22 17:41] LABS: AMORPHOUS SEDIMENT SMALL (NEGATIVE); APPEARANCE, URINE HAZY (CLEAR); BACTERIA, URINE AUTO NEGATIVE (NEGATIVE); BILIRUBIN, URINE AUTO NEGATIVE (NEGATIVE); BLOOD, URINE BLOOD 3+ (NEGATIVE); COLOR, URINE YELLOW (YELLOW); GLUCOSE, URINE (UA) AUTO NEGATIVE (NEGATIVE); KETONE, URINE AUTO NEGATIVE (NEGATIVE); LEUKOCYTE ESTERASE, URINE AUTO 3+ (NEGATIVE); NITRITE, URINE AUTO NEGATIVE (NEGATIVE); PROTEIN, URINE AUTO NEGATIVE (NEGATIVE); RBC, URINE AUTO 2 /HPF (0-3); SPECIFIC GRAVITY URINE AUTO 1.015 (1.002-1.035); SQUAMOUS EPITHELIAL CELL UR AU 4 /HPF (0-6); UROBILINOGEN, URINE AUTO 0.2 mg/dL (0.0-2.0); WBC, URINE AUTO 26 /HPF (0-3)
== END ==
LOC: M PLALAB 13:47
PROVIDERS: ATTEND Obstetrics & Gynecology
DX: Z48.816 Encounter for surgical aftercare following surgery on the genitourinary system (principal)

== ENCOUNTER → 2023-05-27 | Outpatient (REF) | payer OTHER ==
[2023-05-27 16:53] LABS: ALBUMIN 3.3 G/DL (3.2-5.2); ALKALINE PHOSPHATASE 102 U/L (46-116); ALT/SGPT < 9 U/L (7.0-40); AST/SGOT 13 U/L (<34); BILIRUBIN,TOTAL 0.3 MG/DL (0.3-1.2); BLOOD UREA NITROGEN 17 MG/DL (9-23); CALCIUM LEVEL 8.7 MG/DL (8.5-10.1); CARBON DIOXIDE LEVEL 30 MMOL/L (20-31); CHLORIDE LEVEL 103 MMOL/L (98-107); CHOLESTEROL LEVEL 198 MG/DL (<200); CHOLESTEROL RISK RATIO 3.99 (<5); CREATININE FOR GFR 0.82 MG/DL (0.55-1.30); GLOMERULAR FILTRATION RATE > 60.0 (>60); GLUCOSE, FASTING 94 MG/DL (60-100); HDL CHOLESTEROL 49.6 MG/DL (>40); LDL CHOLESTEROL 99.4 MG/DL (<100); MAGNESIUM LEVEL 1.7 MG/DL (1.8-2.4); NON-HDL-C 148.4 MG/DL; POTASSIUM SERUM 4.4 MMOL/L (3.5-5.1); SODIUM LEVEL 136 MMOL/L (136-145); TOTAL PROTEIN 6.9 G/DL (5.7-8.2); TRIGLYCERIDES LEVEL 245 MG/DL (<150)
[2023-05-27 16:56] LABS: THYROID STIMULATING HORMONE 2.312 uIU/ML (0.55-4.78)
[2023-05-27 17:13] LABS: BASO % 0.3 % (0.0-1.0); EOS # 0.4 10^3/uL (0.0-0.5); HEMATOCRIT 38.7 % (36.0-47.0); HEMOGLOBIN 12.8 g/dl (12.0-15.5); LYMPH # 1.8 10^3/uL (1.5-5.0); LYMPH % 18.5 % (24.0-44.0); MEAN CORPUSCULAR HEMOGLOBIN 31.5 pg (27.0-33.0); MEAN CORPUSCULAR HGB CONC 33.1 g/dl (32.0-36.5); MEAN CORPUSCULAR VOLUME 95.3 fl (80.0-96.0); MONO # 0.6 10^3/uL (0.0-0.8); MONO % 6.2 % (2.0-8.0); NEUTROPHILS # 6.9 10^3/uL (1.5-8.5); NEUTROPHILS % 70.8 % (36.0-66.0); PLATELET COUNT, AUTOMATED 356 10^3/uL (150-450); RED BLOOD COUNT 4.06 10^6/uL (4.00-5.40); WHITE BLOOD COUNT 9.8 10^3/uL (4.0-10.0)
[2023-05-27 17:25] LABS: HEMOGLOBIN A1c 5.1 % (4.0-6.0)
== END ==
LOC: M LAB REF 14:14
PROVIDERS: ATTEND Nurse Practitioner Family
DX: E66.01 Morbid (severe) obesity due to excess calories (principal)

== ENCOUNTER → 2023-08-14 | Outpatient (REF) | payer OTHER ==
[2023-08-14 14:15] LABS: ALBUMIN 3.5 G/DL (3.2-5.2); ALKALINE PHOSPHATASE 101 U/L (46-116); ALT/SGPT 31 U/L (7.0-40); AST/SGOT 19 U/L (<34); BILIRUBIN,TOTAL 0.5 MG/DL (0.3-1.2); BLOOD UREA NITROGEN 14 MG/DL (9-23); CARBON DIOXIDE LEVEL 28 MMOL/L (20-31); CHLORIDE LEVEL 106 MMOL/L (98-107); CREATININE FOR GFR 0.82 MG/DL (0.55-1.30); GLOMERULAR FILTRATION RATE > 60.0 (>60); GLUCOSE, FASTING 98 MG/DL (60-100); POTASSIUM SERUM 4.4 MMOL/L (3.5-5.1); SODIUM LEVEL 139 MMOL/L (136-145); TOTAL PROTEIN 6.9 G/DL (5.7-8.2)
== END ==
LOC: M LAB REF 13:04
PROVIDERS: ATTEND Nurse Practitioner Family
DX: E88.819 Insulin resistance, unspecified (principal)

== ENCOUNTER → 2023-11-11 | Outpatient (REF) | payer OTHER ==
[2023-11-11 13:19] LABS: ALBUMIN 3.7 G/DL (3.2-5.2); ALKALINE PHOSPHATASE 93 U/L (46-116); ALT/SGPT 31 U/L (7.0-40); AST/SGOT 22 U/L (<34); BILIRUBIN,TOTAL 0.4 MG/DL (0.3-1.2); BLOOD UREA NITROGEN 17 MG/DL (9-23); CARBON DIOXIDE LEVEL 28 MMOL/L (20-31); CHLORIDE LEVEL 105 MMOL/L (98-107); CREATININE FOR GFR 0.74 MG/DL (0.55-1.30); GLOMERULAR FILTRATION RATE > 60.0 (>60); GLUCOSE, FASTING 101 MG/DL (60-100); POTASSIUM SERUM 4.3 MMOL/L (3.5-5.1); SODIUM LEVEL 137 MMOL/L (136-145); TOTAL PROTEIN 6.9 G/DL (5.7-8.2)
== END ==
LOC: M LAB REF 11:44
PROVIDERS: ATTEND Nurse Practitioner Family
DX: E88.819 Insulin resistance, unspecified (principal)

== ENCOUNTER → 2024-07-16 | Outpatient (CLI) | payer OTHER ==
[~2024-07-16] MED LIST changes: -FLOM0.4C39 PO; -SUCR1ORA2 PO; +SUCR1ORA20 PO; +TAMS-18 PO
== END ==
LOC: M WHC 09:41
PROVIDERS: ATTEND Physician Assistant
DX: E66.01 Morbid (severe) obesity due to excess calories (principal)

== ENCOUNTER → 2024-07-30 | Outpatient (CLI) | payer OTHER | LOC: M EKG 13:55 | PROVIDERS: ATTEND Nurse Practitioner Family | DX: R94.31 Abnormal electrocardiogram [ECG] [EKG] (principal) ==

== ENCOUNTER → 2024-11-05 | Outpatient (REF) | payer OTHER ==
[2024-11-05 12:45] LABS: BASO # 0.1 10^3/uL (0.0-0.2); BASO % 0.6 % (0.0-1.0); EOS # 0.6 10^3/uL (0.0-0.5); EOS % 6.8 % (0.0-3.0); LYMPH # 1.9 10^3/uL (1.5-5.0); LYMPH % 22.9 % (24.0-44.0); MONO # 0.7 10^3/uL (0.0-0.8); MONO % 8.7 % (2.0-8.0); NEUTROPHILS # 4.9 10^3/uL (1.5-8.5); NEUTROPHILS % 60.9 % (36.0-66.0); PLATELET COUNT, AUTOMATED 344 10^3/uL (150-450)
[2024-11-05 12:54] LABS: ALT/SGPT 39.0 U/L (7.0-40); AST/SGOT 27.0 U/L (<34); CALCIUM LEVEL 9.6 MG/DL (8.5-10.1); CARBON DIOXIDE LEVEL 28.0 MMOL/L (20-31); CHLORIDE LEVEL 104.0 MMOL/L (98-107); CHOLESTEROL LEVEL 238.0 MG/DL (<200); CHOLESTEROL RISK RATIO 4.45 (<5); CREATININE FOR GFR 0.87 MG/DL (0.55-1.30); GLOMERULAR FILTRATION RATE 89.6 (>60); LDL CHOLESTEROL 138.6 MG/DL (<100); NON-HDL-C 184.6 MG/DL; POTASSIUM SERUM 4.9 MMOL/L (3.5-5.1); SODIUM LEVEL 141.0 MMOL/L (136-145); TRIGLYCERIDES LEVEL 230.0 MG/DL (<150)
[2024-11-05 12:55] LABS: TOTAL 25(OH) VITAMIN D 25.3 NG/ML (20.0-100.0)
[2024-11-05 14:16] LABS: ESTIMATED AVERAGE GLUCOSE 105.0 MG/DL (60-110)
== END ==
LOC: M LAB REF 11:57
PROVIDERS: ATTEND Physician Assistant
DX: E66.01 Morbid (severe) obesity due to excess calories (principal); E55.9 Vitamin D deficiency, unspecified

== ENCOUNTER → 2024-12-09 | Outpatient (CLI) | payer OTHER | LOC: M SLEEP 20:00 | PROVIDERS: ATTEND Physician Assistant | DX: G47.33 Obstructive sleep apnea (adult) (pediatric) (principal) ==